=== PATIENT | female | born 1955 | race Caucasian/White ===

== ENCOUNTER → 2016-05-09 | Outpatient (CLI) | payer BC ==
--- NOTE | 2016-05-10 10:05 | MM ---
Reason for exam: screening (asymptomatic). Last mammogram was performed 1 year ago. History: Patient is postmenopausal. Family history of breast cancer in mother at age 57. Physical Findings: A clinical breast exam by your physician is recommended on an annual basis and results should be correlated with mammographic findings. MG 3D Screening Mammo W/Cad Bilateral CC and MLO view(s) were taken. Prior study comparison: May 01, 2015, bilateral MG 3d screening mammo w/cad. March 28, 2014, bilateral MG screening mammo w CAD. February 27, 2013, bilateral digital screening mammo w/CAD. There are scattered fibroglandular densities. No significant changes when compared with prior studies. ASSESSMENT: Negative, BI-RAD 1 RECOMMENDATION: Routine screening mammogram of both breasts in 1 year.
== END | disposition home or self-care (01) ==
LOC: RADMAMWWP 09:02
PROVIDERS: ATTEND Family Medicine
DX: Z12.31 Encounter for screening mammogram for malignant neoplasm of breast (principal)
CPT/HCPCS: 77063; G0202

== ENCOUNTER → 2016-05-23 | Outpatient (CLI) | payer OTHER ==
--- NOTE | 2016-05-23 14:38 | XR ---
Left foot HISTORY: Trauma and pain 3 views of the left foot Comparison the left ankle same date Bone mineralization is mildly reduced. Joint spaces and alignment are maintained. Soft tissues are wi thin normal limits. Calcifications are present at the insertion of the Achilles tendon. There is a pl rafaela calcaneal spur. IMPRESSION: No acute fracture or dislocation is evident
--- NOTE | 2016-05-23 14:40 | XR ---
Left ankle HISTORY: Trauma and pain 3 views of the left ankle correlated to left foot same date There is soft tissue swelling present. Small ossific density is present at the level of the medial ma lleolus which may represent a small chip fracture, correlate for point tenderness. Small ossific dens ities at the medial aspect of the talus are present some of which are well-corticated, difficult to e xclude small chip fractures. No dislocation. Ossific densities present at the insertion of the Achill es tendon. There is a small plantar calcaneal spur, bone mineralization is reduced. IMPRESSION: Difficult to exclude small chip fractures.
== END | disposition home or self-care (01) ==
LOC: RADXRMAIN 14:12
PROVIDERS: ATTEND Emergency Medicine
DX: S90.02XA Contusion of left ankle, initial encounter (principal); S90.32XA Contusion of left foot, initial encounter; W20.8XXA Other cause of strike by thrown, projected or falling object, initial encounter

== ENCOUNTER → 2016-07-01 | Outpatient (CLI) | payer OTHER ==
--- NOTE | 2016-07-01 16:15 | XR ---
EXAMINATION TYPE: XR foot complete LT DATE OF EXAM: 07/01/2016 4:08 PM COMPARISON: NONE HISTORY: Contusion left foot, subsequent encounter TECHNIQUE: 3 view left foot FINDINGS: No acute fractures are evident. Joint spaces are preserved. Achilles tendon and plantar yvon caneal heel spurs are present. There is some soft tissue swelling over the dorsum of the foot. IMPRESSION: 1. Superficial soft tissue swelling dorsum of foot. 2. No acute fractures. 3. Calcaneal heel spurs.
== END | disposition home or self-care (01) ==
LOC: RADXRMAIN 15:54
PROVIDERS: ATTEND Emergency Medicine
DX: M77.32 Calcaneal spur, left foot (principal); S90.32XD Contusion of left foot, subsequent encounter; X58.XXXD Exposure to other specified factors, subsequent encounter

== ENCOUNTER → 2016-07-07 | Outpatient (CLI) | payer BC | LOC: LABWHC1 07:35 | PROVIDERS: ATTEND Internal Medicine Endocrinology, Diabetes & Metabolism | DX: C73 Malignant neoplasm of thyroid gland (principal); E89.0 Postprocedural hypothyroidism; E55.9 Vitamin D deficiency, unspecified; M89.9 Disorder of bone, unspecified; E78.2 Mixed hyperlipidemia | CPT/HCPCS: 36415; 84439; 84443; 84450; 84460 ==

== ENCOUNTER → 2016-11-17 | Outpatient (CLI) | payer BC ==
--- NOTE | 2016-11-27 15:21 | HP ---
HISTORY AND PHYSICAL DATE OF SURGERY: Surgery is scheduled for 11/28/2016 Debora Aparicio is a 61-year-old patient seen with progressive right knee pain. After treatment options were discussed with her she elected to proceed with right total knee arthroplasty. Consent was obtained. Medical clearance was provided by Dr. Iker Gonzalez. PAST MEDICAL HISTORY: Gastroesophageal reflux disease. Hypothyroidism, hypertension. PAST SURGICAL HISTORY: Cholecystectomy, hysterectomy, knee arthroscopy, thyroidectomy. DAILY MEDICATIONS: 1. Prilosec. 2. Ibuprofen. 3. Synthroid. 4. Tribenzor. ALLERGIES: AMOXICILLIN, SEPTRA, MONISTAT. SOCIAL HISTORY: Patient denies tobacco use. PHYSICAL EVALUATION: Right knee range of motion is negative for to 95 degrees. There is a mild effusion present tenderness on medial joint line. Positive medial Katiana's. There is crepitus along the medial and patellofemoral compartments with range of motion. Pain with patellofemoral compression. Ligaments stable. Hip rotation without pain. Distal neurovascular exam intact. RADIOGRAPHS: Radiographs of the right knee revealed severe medial compartment and patellofemoral compartment osteoarthritis. IMPRESSION: Symptomatic right knee osteoarthritis. PLAN: Right total knee arthroplasty. MMODL / IJN: [id number] /
== END | disposition home or self-care (01) ==
LOC: LABPAT 16:31
PROVIDERS: ATTEND Orthopaedic Surgery
DX: Z01.812 Encounter for preprocedural laboratory examination (principal)
CPT/HCPCS: 87070

== ENCOUNTER 2016-11-28 06:03 | Inpatient (IN) | payer BC ==
[2016-11-21 17:34] VITALS: BMI 35.5
[~2016-11-28 06:03] MED LIST: DEXAMETHASONE SOD PHOSPHATE 10 MG/ML 1 ML VIAL IV ONE; HYDROmorphone 1 MG/ML 1 ML SYRINGE IVP PRN; LACTATED RINGERS 1,000 ML IV SCH; MIDAZOLAM 2 MG/2 ML VIAL IV PRN; ONDANSETRON 4 MG/2 ML VIAL IVP ONE
[2016-11-28] MEDS ORDERED: LIDOCAINE 1% 20 ML VIAL (10MG/ML) FOR IV START INTRADERMA ONE (06:35)
[2016-11-28] MEDS ORDERED: fentaNYL (PF) 50 MCG/ML 2 ML AMP IVP ONE ×2 (07:07→07:28)
[2016-11-28] MEDS ORDERED: ROPIVACAINE 246.25 MG, EPINEPHrine 0.5 MG, KETOROLAC 30 MG, cloNIDine HCL/PF 80 MCG, WA... MISCELLANE ONE ×5 (07:25)
[2016-11-28] MEDS ORDERED: MIDAZOLAM 2 MG/2 ML VIAL IVP ONE (07:28)
[2016-11-28] MEDS ORDERED: SODIUM CHLORIDE 0.9% 100 ML BAG ONE (07:34)
[2016-11-28] MEDS ORDERED: MIDAZOLAM 2 MG/2 ML VIAL ONE (07:34)
[2016-11-28] MEDS ORDERED: TRANEXAMIC ACID 1,000 MG/10 ML VIAL ONE (07:34)
[2016-11-28] MEDS ORDERED: TRANEXAMIC ACID 1,000 MG in SODIUM CHLORIDE 0.9% 100 ML IVPB ONE ×2 (07:40→07:41)
[2016-11-28] MEDS ORDERED: SODIUM CHLORIDE 0.9% 100 ML with CLINDAMYCIN 600 MG IV ONE ×2 (07:45)
[2016-11-28] MEDS ORDERED: LACTATED RINGERS 1,000 ML IV ONE (08:07)
[2016-11-28] MEDS ORDERED: ROPIVACAINE 1,100 MG, SODIUM CHLORIDE 0.9% 330 ML MISCELLANE PRN ×2 (08:10)
--- NOTE | 2016-11-28 08:12 | P.ONQ ---
Anesthesiology Proc Note - PNB - Peripheral Nerve Block Performed Right Adductor Canal Infusion Time Out Performed: Yes Indication: Acute Post-Operative Pain, Analgesia Specifically requested for management of pain by DrCameron: Henri Martínez Sedation Type: Sedate with meaningful contact maintained Preparation: Sterile Prep Position: Supine Catheter Depth at Skin (cm): 7 Catheter: Indwelling Needle Types: Other (see comment) (pajunk) Needle Size: 100mm (4") Needle Gauge: 21 Technique: Ultrasound Injectate: 0.5% Ropivacaine (see comment for volume) (20cc) Blood Aspirated: No Pain Paresthesia on Injection Noted: No Resistance on Injection: Normal Events: Uneventful and Well Tolerated
[2016-11-28] MEDS ORDERED: CLINDAMYCIN 1,800 MG in SODIUM CHLORIDE 0.9% IRRIGATIO 3,000 ML IRRIGATION ONE (08:21)
[2016-11-28] MEDS ORDERED: ONDANSETRON 4 MG/2 ML VIAL IVP PRN (09:51)
[2016-11-28] MEDS ORDERED: HYDROcodone/APAP 7.5-325MG 1 EACH TAB PO PRN (09:51)
[2016-11-28] MEDS ORDERED: HYDROmorphone 1 MG/ML 1 ML SYRINGE IVP PRN ×3 (09:51)
[2016-11-28] MEDS ORDERED: hydrOXYzine PAMOATE 25 MG CAP PO PRN (09:51)
[2016-11-28] MEDS ORDERED: NALOXONE 0.4 MG/ML 1 ML VIAL IV PRN (09:51)
--- NOTE | 2016-11-28 09:51 | P.OP ---
Date of Procedure: 11/28/16 Preoperative Diagnosis: Right knee osteoarthritis Postoperative Diagnosis: Right knee osteoarthritis Procedure(s) Performed: Right total knee arthroplasty Implants: 1. Deirdre persona size 7 narrow cemented cruciate retaining femur 2. Deirdre persona size E cemented tibia 3. Deirdre persona 14 mm medial congruent polyethylene tibial insert 4. Deirdre persona 32 mm all polyethylene cemented patella Anesthesia: regional (Adductor canal catheter), local, spinal Surgeon: Henri Martínez Private Equ[employer] Analyst #1: Parrish Russell Estimated Blood Loss (ml): 200 Pathology: other (Bone) Condition: stable Disposition: PACU Indications for Procedure: 61-year-old patient seen with progressive right knee pain. After treatment options were discussed, she elected to proceed with total knee arthroplasty. Operative Findings: See description of procedure Description of Procedure: Patient was taken to the operative suite after having an adductor canal catheter placed by the department anesthesia. Patient underwent a spinal anesthetic by the department of anesthesia. Patient was given preoperative IV intake antibiotics and TXA. A well-padded tourniquet was placed about the right lower extremity. The lower extremity was then prepped and draped in the normal sterile orthopedic fashion. A standard anterior incision was made sharply through skin. Dissection was taken down through the subcutaneous soft tissues down to the extensor mechanism. A medial arthrotomy was performed, patella was everted and knee was flexed. There was advanced osteoarthritis noted. A proximal tibial cutting guide was positioned. Proximal tibial cut was made. A distal intramedullary femoral cutting guide was positioned, distal femoral cut made. We placed the appropriate sizing guide and selected the appropriate size. A distal 4-in-1 femoral cutting block was positioned, distal femoral cuts were made. We now placed a trial femoral component into position, along with an appropriate size tibial tray and insert. We now took the knee through range of motion and had full extension good flexion and good overall soft tissue balance noted. The patella was everted and a flush cut made with patellar quad tendon. We templated the patella, appropriate drill holes were made. An appropriate trial patella was positioned, knee was taken through full range of motion with the patella tracking very nicely. The trial patella was removed. Drill holes were made through the femoral component. All trial components were removed after marking off the appropriate rotation of the tibia. Retractors were now positioned along the proximal tibia. An appropriate keel punch was made with the appropriate size tibial guide. The tourniquet was insufflated to 350. At this point appropriate size implants were chosen and opened. The joint was irrigated copiously with pulse lavage mechanical irrigation. I then infiltrated the deep soft tissues with local analgesic. We mixed antibiotic methylmethacrylate. Once the methyl methacrylate was ready, the tibial component was cemented into place removing any excess methylmethacrylate. The femoral component was cemented into place removing the removing any excess methylmethacrylate. We then inserted the appropriate size polyethylene tibial insert. We made sure that it was locked into position. We took the knee into full extension, and then back in a flexion making sure we had removed any excess methylmethacrylate. The patellar component was then cemented down and secured with clamp. Excess methylmethacrylate removed. We kept the knee in full extension, patellar clamp in position until methylmethacrylate had hardened. Once it had hardened the patellar clamp was removed. The knee was taken through full range of motion. The patella tracked nicely. There was good soft tissue balancing. The tourniquet was now released. Additional hemostasis was achieved via electrocautery. A second gram of TXA was given. The extensor mechanism was repaired with Vicryl. We checked the repair with range of motion and it was stable. The subcutaneous soft tissues were repaired with Vicryl in layers. The skin was approximated with pernio/Dermabond. Sterile dressings were applied followed by loose web roll and Vlad bandage. The patient was transferred to a bed, and taken to recovery in stable and satisfactory condition. Rick VAZQUEZ assisted with the procedure.
--- NOTE | 2016-11-28 10:43 | XR ---
EXAMINATION TYPE: XR knee limited RT DATE OF EXAM: 11/28/2016 COMPARISON: NONE HISTORY: 61-year-old female evaluation for postoperative abnormality and alignment TECHNIQUE: 2 views FINDINGS: Images show placement of right total knee arthroplasty. The distal femoral and proximal tibial compon ents of the prosthesis appear well seated without periprosthetic fracture. There is anterior soft tis charis swelling as well as soft tissue gas and intra-articular air in joint effusion compatible with rec ent operation. Alignment is grossly anatomic. IMPRESSION: Uncomplicated postoperative appearance right total knee arthroplasty.
[2016-11-28] MEDS ORDERED: LORATADINE 10 MG TAB PO PRN (11:57)
--- NOTE | 2016-11-28 12:01 | P.CONS ---
History of Present Illness - Reason for Consult Consult date: 11/28/16 medical management Requesting physician: Henri Martínez - Chief Complaint post right total knee arthroplasty. - History of Present Illness This is a 61-year-old female one of Dr. Gonzalez with a previous medical history significant for hypertension and hypertensive cardiovascular disease, hypothyroidism, history of ALLERGIC rhinitis, osteoarthritis, patient underwent right total knee arthroplasty that was done successfully by Dr. Martínez, and we were asked to see the patient for medical management. Patient is laying down in bed in no apparent distress, she denies any chest pain , shortness breath, she has no abdominal pain, nausea, vomiting. Review of Systems Constitutional: Denies anorexia, Denies lethargy, Denies malaise, Denies weakness, Denies weight gain Eyes: denies blurred vision, denies bulging eye, denies decreased vision, denies diplopia, denies discharge Ears: bilateral: decreased hearing Ears, nose, mouth and throat: Denies dysphagia, Denies neck lump, Denies swelling in throat, Denies sore throat, Denies vertigo Cardiovascular: Reports high blood pressure, Denies chest pain, Denies decreased exercise tolerance, Denies dyspnea on exertion, Denies paroxysmal nocturnal dyspnea, Denies phlebitis, Denies rapid heart beat Respiratory: Denies congestion, Denies cough, Denies cough with sputum, Denies home oxygen, Denies sleep apnea, Denies snoring, Denies wheezing Gastrointestinal: Denies abdominal pain, Denies bloating, Denies BRBPR, Denies excessive gas, Denies heartburn, Denies nausea, Denies vomiting Genitourinary: Denies dysuria, Denies hematuria Menstruation: Reports postmenopausal Musculoskeletal: Denies myalgias Musculoskeletal: right: knee pain, knee stiffness, knee swelling, absent: ankle pain, ankle stiffness, ankle swelling, elbow pain, elbow stiffness, elbow swelling, foot pain, foot stiffness, foot swelling, hand pain, hand stiffness, hand swelling, hip pain, hip stiffness, hip swelling, shoulder pain, shoulder stiffness, shoulder swelling, wrist pain, wrist stiffness, wrist swelling Integumentary: Denies pruritus, Denies rash Neurological: Denies numbness, Denies weakness Psychiatric: Denies anxiety, Denies depression Endocrine: Denies fatigue, Denies weight change Past Medical History Past Medical History: Hypertension, Osteoarthritis (OA), Sleep Apnea/CPAP/BIPAP , Thyroid Disorder Additional Past Medical History / Comment(s): supposed to use CPAP History of Any Multi-Drug Resistant Organisms: None Reported Past Surgical History: Cholecystectomy, Hysterectomy, Orthopedic Surgery Additional Past Surgical History / Comment(s): thyroidectomy, arthroscopy knee Past Anesthesia/Blood Transfusion Reactions: Postoperative Nausea & Vomiting ( PONV) Smoking Status: Never smoker - Past Family History Mother Family Medical History: Cancer (mother at age of 52 from breast cancer.) Sister(s) Family Medical History: Cancer, Coronary Artery Disease (CAD) (patient had 4 sisters one of them from [place] and another sister was diagnosed with cancer.) Father Family Medical History: Pulmonary Embolus (father at age of 65 from pulmonary embolism.) Son(s) Family Medical History: No Reported History (patient has 2 sons no major medical problems.) Daughter(s) Family Medical History: No Reported History (patient has one daughter no major medical problems.) Medications and Allergies Home Medications Medication Instructions Recorded Confirmed Type Acetaminophen Tab [Tylenol Tab] 500 mg PO Q6H PRN 11/21/16 11/28/16 History Calcium Citrate 250 mg PO DAILY 11/21/16 11/28/16 History Cranberry Fruit Extract [Cranberry] 200 mg PO DAILY 11/21/16 11/28/16 History Ergocalciferol (Vitamin D2) 50,000 unit PO SA 11/21/16 11/28/16 History [Vitamin D2] Garlic 1 tab PO DAILY 11/21/16 11/28/16 History Glucosam/Devaughn-Msm1/C/Nitesh/Bosw 1 tab PO DAILY 11/21/16 11/28/16 History [Glucosamine-Chondroitin Tablet] Ibuprofen [Motrin] 800 mg PO Q6H PRN 11/21/16 11/28/16 History Levothyroxine Sodium [Synthroid] 125 mcg PO DAILY 11/21/16 11/28/16 History Loratadine [Claritin] 10 mg PO DAILY PRN 11/21/16 11/28/16 History Magnesium 200 mg PO DAILY 11/21/16 11/28/16 History Multivit with Calcium,Iron,Min 1 tab PO DAILY 11/21/16 11/28/16 History [Women's Multivitamin] Olmesartan/Amlodipin/Hcthiazid 1 tab PO DAILY 11/21/16 11/28/16 History [Tribenzor 20-5-12.5 mg Tablet] [place]-3 Fatty Acids [[place]-3] 1,000 mg PO DAILY 11/21/16 11/28/16 History Vitamin B Complex 1 cap PO DAILY 11/21/16 11/28/16 History Allergies Allergy/AdvReac Type Severity Reaction Status Date / Time amoxicillin Allergy Rash/Hives Verified 11/28/16 10:11 cefuroxime [From Ceftin] Allergy Unknown Verified 11/28/16 10:11 ciprofloxacin [From Cipro] Allergy Unknown Verified 11/28/16 10:11 sulfamethoxazole Allergy Unknown Verified 11/28/16 10:11 [From Septra] tioconazole Allergy Unknown Verified 11/28/16 10:11 [From Monistat 1 (tioconazole)] trimethoprim [From Septra] Allergy Unknown Verified 11/28/16 10:11 Physical Exam Vitals: Vital Signs Temp Pulse Pulse Resp BP Pulse Ox 11/28/16 10:39 60 16 95/50 97 11/28/16 10:24 59 L 16 90/50 98 11/28/16 10:09 63 16 97/46 96 11/28/16 09:54 97.2 F L 71 18 101/53 96 11/28/16 06:20 97.5 F L 81 16 134/64 95 Intake and Output 11/27/16 11/28/16 11/28/16 22:59 06:59 14:59 Intake Total 300 1305 Output Total 450 Balance 300 855 Intake: IV 300 1305 Output: Urine 250 Estimated Blood Loss 200 - Constitutional General appearance: no acute distress - EENT Eyes: anicteric sclerae, EOMI, PERRLA, no ptosis, scleral icterus, no normal appearance ENT: hearing grossly normal, NA/AT, normal oropharynx, no thrush Ears: bilateral: normal - Neck Neck: no lymphadenopathy, normal ROM, no rigidity, no stridor, no thyromegaly Carotids: bilateral: upstroke normal Thyroid: bilateral: normal size - Respiratory Respiratory: bilateral: diminished, negative: dullness, rales, rhonchi, wheezing , prolonged expiration, prolonged inspiration - Cardiovascular Rhythm: regular Heart sounds: normal: S1, S2 Abnormal Heart Sounds: systolic murmur, no S3 Gallop, no S4 Gallop, no click - Gastrointestinal General gastrointestinal: normal bowel sounds, soft, no splenomegaly, no tenderness, no umbilical hernia, no ventral hernia - Integumentary Integumentary: normal, normal turgor - Neurologic Neurologic: CNII-XII intact - Musculoskeletal Musculoskeletal: strength equal bilaterally - Psychiatric Psychiatric: A&O x's 3, appropriate affect, intact judgment & insight Assessment and Plan Plan: Assessment and plan: 1. Post operative day #0 status post right total knee arthroplasty. Continue incentive Spiriva her to reduce the incidence of atelectasis and hospital- acquired pneumonia, continue with DVT prophylaxis as per orthopedic recommend ablation, continue with physical therapy, current pain management as outlined by orthopedic surgery, physical therapy evaluation tomorrow morning. 2. Hypertension and hypertensive cardiovascular disease. Continue patient on Tribenzor 20/5/12.5 mg orally once every day. 3. Hypothyroidism. Continue patient on Synthroid 125 g orally once every day. 4. Vitamin D deficiency. Continue patient on Drisdol 50,000 units once every week. 5. ALLERGIC rhinitis. Continue loratadine 10 mg orally once every day. 6. Osteoarthritis. Continue current pain management. 7. DVT prophylaxis. Continue Lovenox 30 mg subcutaneously every 12 hours. 8. GI prophylaxis. Continue current management. 9. Thank you Dr. Martínez for allowing us to participate in the care of your patient, we will be happy to follow the patient along with you.
[2016-11-28] MEDS: LACTATED RINGERS 1,000 ML IV SCH ×2 (12:23→19:36)
--- NOTE | 2016-11-28 13:14 | P.DS ---
Providers Date of admission: 11/28/16 06:03 Expected date of discharge: 11/29/16 Attending physician: Henri Martínez Consults: 11/28/16 09:51 Consult Physician Routine Consulting Provider: Sai Coelho Reason/Comments: Medical management Do you want consulting provider notified?: Yes Primary care physician: Iker [facility] Course: Date of admission: 11/28/2016 Date of discharge: 11/29/2016 Admission diagnosis: Status post right total knee arthroplasty Discharge diagnosis: Same Attending physician: Dr. Martínez Surgical procedures: Right total knee arthroplasty Brief history: Patient is a 61-year-old female with a history of progressive primary right knee osteoarthritis. At this point patient has failed conservative treatment measures and has opted to proceed with a elective right total knee arthroplasty. Hospital course: Details of patient's surgery can be found in operative report. Patient tolerated the procedure well and was subsequently transported to orthopedic floor. Patient's orthopeidc and medical care was provided daily. Patient had daily laboratory tests performed for evaluation of overall blood counts. Patient had daily physical therapy to include strengthening range of motion as well as education with walker ambulation. Patient had daily CPM usage as part of their physical therapy program. Patient was treated with Lovenox for their postoperative DVT prophylaxis during their inpatient stay. Patient was noted to have a relatively uneventful postoperative course. Patient reported satisfactory pain control with oral pain medications by postoperative day 0. Patient showed satisfactory progress with physical therapy. Patient moved steadily through the program and had no difficulty meeting the goals by postoperative day 2. Given patient's otherwise satisfactory course and having met physical therapy goals, plan is to discharge patient home on postoperative day 2. Discharge condition/disposition: Patient will be discharged home in stable condition. Discharge medications: Instructions are given on resumption of patient's normal daily medications per primary care recommendation, in addition patient will be prescribed [place] 7.5 mg/325 mg, tramadol 50 mg, Senokot-S 100 mg, Pepcid 20 mg, aspirin. 325 mg. Discharge instructions: 1. Wound care and infection precautions, [keep incision dry and covered while showering], no lotions, creams, moisturizers. No soaking, tubs, pools, hottubs. Do not scrub over the incision. 2. Weight-bear [as tolerated] with walker / cane until follow-up. 3. Ice and elevate when necessary. Do not exceed 20 minutes per hour with ice pack. 4. Utilize compression sleeve until seen at first follow up appointment. 5. Visiting nursing care. 6. Home physical therapy [including home CPM]. 7. Pain meds and anticoagulants per prescription. 8. Pain medication has potential to cause constipation. Increase oral fluid and fiber intake. Contact primary care provider if you have not had a bowel movement within 48 hours after discharge 9. No anti-inflammatory medication until discussed at first post operative visit, this including Motrin, Aleve, Mobic, Diclofenac. 10. Follow up in office at 2 weeks postop with Rick Russell PA-C 11. Follow up with your primary care doctor 7-10 days after discharge. 12. Contact [facility] with any questions, . Procedures: Right total knee arthroplasty Patient Condition at Discharge: Good Plan - Discharge Summary New Discharge Prescriptions: New Famotidine [Pepcid] 20 mg PO DAILY #30 tab HYDROcodone/APAP 7.5-325MG [[place] 7.5-325] 1 each PO Q6H PRN #120 tab PRN Reason: Pain Scale 1 To 5 Sennosides-Docusate Sodium [Senokot-S] 2 each PO HS #60 tab Aspirin EC [Ecotrin] 325 mg PO BID #60 tablet. traMADol HCl [Ultram] 50 mg PO Q6H PRN #40 tab PRN Reason: Pain Continue Loratadine [Claritin] 10 mg PO DAILY PRN PRN Reason: allergies Acetaminophen Tab [Tylenol] 500 mg PO Q6H PRN PRN Reason: Pain Levothyroxine Sodium [Synthroid] 125 mcg PO DAILY Vitamin B Complex 1 cap PO DAILY Washington-3 Fatty Acids [Washington-3] 1,000 mg PO DAILY Olmesartan/Amlodipin/Hcthiazid [Tribenzor 20-5-12.5 mg Tablet] 1 tab PO DAILY Multivit with Calcium,Iron,Min [Women's Multivitamin] 1 tab PO DAILY Magnesium 200 mg PO DAILY Glucosam/Devaughn-Msm1/C/Nitesh/Bosw [Glucosamine-Chondroitin Tablet] 1 tab PO DAILY Garlic 1 tab PO DAILY Ergocalciferol (Vitamin D2) [Vitamin D2] 50,000 unit PO SA Cranberry Fruit Extract [Cranberry] 200 mg PO DAILY Calcium Citrate 250 mg PO DAILY Discontinued Ibuprofen [Motrin] 800 mg PO Q6H PRN PRN Reason: Pain Discharge Medication List Acetaminophen Tab [Tylenol] 500 mg PO Q6H PRN 11/21/16 [History] Calcium Citrate 250 mg PO DAILY 11/21/16 [History] Cranberry Fruit Extract [Cranberry] 200 mg PO DAILY 11/21/16 [History] Ergocalciferol (Vitamin D2) [Vitamin D2] 50,000 unit PO SA 11/21/16 [History] Garlic 1 tab PO DAILY 11/21/16 [History] Glucosam/Devaughn-Msm1/C/Nitesh/Bosw [Glucosamine-Chondroitin Tablet] 1 tab PO DAILY 11/21/16 [History] Levothyroxine Sodium [Synthroid] 125 mcg PO DAILY 11/21/16 [History] Loratadine [Claritin] 10 mg PO DAILY PRN 11/21/16 [History] Magnesium 200 mg PO DAILY 11/21/16 [History] Multivit with Calcium,Iron,Min [Women's Multivitamin] 1 tab PO DAILY 11/21/16 [ History] Olmesartan/Amlodipin/Hcthiazid [Tribenzor 20-5-12.5 mg Tablet] 1 tab PO DAILY [History] Washington-3 Fatty Acids [Washington-3] 1,000 mg PO DAILY 11/21/16 [History] Vitamin B Complex 1 cap PO DAILY 11/21/16 [History] Aspirin EC [Ecotrin] 325 mg PO BID #60 tablet. 11/29/16 [Rx] Famotidine [Pepcid] 20 mg PO DAILY #30 tab 11/29/16 [Rx] HYDROcodone/APAP 7.5-325MG [[place] 7.5-325] 1 each PO Q6H PRN #120 tab 11/29/16 [ Rx] Sennosides-Docusate Sodium [Senokot-S] 2 each PO HS #60 tab 11/29/16 [Rx] traMADol HCl [Ultram] 50 mg PO Q6H PRN #40 tab 11/29/16 [Rx] Follow up Appointment(s)/Referral(s): Parrish Russell PAC [PHYSICIAN INSERT OPERATOR] - 2 Weeks [facility], [REFERRING] - Activity/Diet/Wound Care/Special Instructions: Orthopedic Discharge Instructions: 1. Wound care and infection precautions, keep incision dry and covered while showering, no lotions, creams, moisturizers. No soaking, pools, hot tubs. Do not scrub over incision. 2. Weight-bear as tolerated with walker / cane until follow-up. 3. Ice and elevate when necessary. Do not exceed 20 minutes per hour with ice pack. 4. Utilize compression sleeve until seen at first follow up appointment. 5. Visiting nursing care. 6. Home physical therapy including home CPM. 7. Pain meds and anticoagulants per prescription. 8. Pain medication has potential to cause constipation. Increase oral fluid and fiber intake. Contact primary care provider if you have not had a bowel movement within 48 hours after discharge. 9. No anti-inflammatory medication until discussed at first post operative visit, this including Motrin, Aleve, Mobic, Diclofenac. 10. Follow up in office at 2 weeks postop with Rick Russell PA-C 11. Follow up with your primary care doctor 7-10 days after discharge. 12. Contact [facility] with any questions, . Walker through [facility] [phone]. Discharge Disposition: HOME WITH HOME HEALTH SERVICES
[2016-11-28] MEDS: CLINDAMYCIN 900 MG in DEXTROSE 5% IN WATER 50 ML IVPB SCH ×4 (13:45→18:07)
[2016-11-28] MEDS: traMADol 50 MG TAB PO SCH ×3 (13:46→21:37)
[2016-11-28] MEDS ORDERED: SENNOSIDES-DOCUSATE SODIUM 1 EACH TAB PO SCH (21:00)
[2016-11-28] MEDS: ENOXAPARIN 30 MG/0.3 ML SYRINGE SQ SCH (21:37)
[2016-11-28] MEDS: HYDROcodone/APAP 7.5-325MG 1 EACH TAB PO PRN (23:26)
[2016-11-29] MEDS: LACTATED RINGERS 1,000 ML IV SCH (00:16)
[2016-11-29] MEDS: HYDROcodone/APAP 7.5-325MG 1 EACH TAB PO PRN ×2 (04:37→12:15)
[2016-11-29] MEDS ORDERED: LEVOTHYROXINE 125 MCG TAB PO SCH (06:30)
[2016-11-29 07:44] LABS: Basophils % (A) 0 %; CH 31.9; CHCM 34.9; Eosinophils # (A) 0.1 k/uL (0-0.7); Eosinophils % (A) 0 %; HCT 37.1 % (34.0-46.0); HDW 2.56; HGB 12.8 gm/dL (11.4-16.0); Luc # (Auto) 0.19; Luc % (Auto) 1; Lymphocytes # (A) 2.5 k/uL (1.0-4.8); Lymphocytes % (A) 17 %; MCH 31.7 pg (25.0-35.0); MCHC 34.5 g/dL (31.0-37.0); MCV 91.9 fL (80.0-100.0); Mean Platelet Volume 7.6; Monocytes # (A) 1.2 k/uL (0-1.0); Monocytes % (A) 8 %; Neutrophils # (A) 10.7 k/uL (1.3-7.7); Neutrophils % (A) 73 %; RBC 4.04 m/uL (3.80-5.40); RDW 13.4 % (11.5-15.5); WBC 14.6 k/uL (3.8-10.6); WBC (Perox) 14.44
[2016-11-29] MEDS: ENOXAPARIN 30 MG/0.3 ML SYRINGE SQ SCH (08:37)
[2016-11-29] MEDS: traMADol 50 MG TAB PO SCH ×2 (08:38→12:43)
[2016-11-29] MEDS ORDERED: B COMPLEX-VIT C-VIT E-ZINC 1 EACH TAB PO SCH (09:00)
[2016-11-29] MEDS ORDERED: MAGNESIUM OXIDE 400 MG TAB PO SCH (09:00)
[2016-11-29] MEDS ORDERED: CALCIUM CITRATE 250 MG PO SCH (09:00)
[2016-11-29] MEDS ORDERED: MELOXICAM 7.5 MG TAB PO SCH (09:00)
[2016-11-29] MEDS ORDERED: HYDROCHLOROTHIAZIDE 12.5 MG CAP PO SCH (09:00)
[2016-11-29] MEDS ORDERED: LOSARTAN 50 MG TAB PO SCH (09:00)
[2016-11-29] MEDS ORDERED: amLODIPine 5 MG TAB PO SCH (09:00)
[2016-11-29] MEDS ORDERED: FAMOTIDINE 20 MG TAB PO SCH (09:00)
--- NOTE | 2016-11-29 10:47 | P.PN ---
Progress Note - Text 0737 anesthesia POD 1. Patient is status post right TKR under spinal anesthesia with a right adductor canal catheter placed for postoperative pain relief. With ropivacaine 0.2% running at 8 mL per hour the patient's VAS is (2 , 4). Catheter site is clean dry and intact.
[2016-11-29] MEDS ORDERED: MULTIVITAMINS, THERA 1 EACH TAB PO SCH (12:00)
--- NOTE | 2016-11-29 12:40 | P.PN ---
Subjective Principal diagnosis: Status post right total knee arthroplasty Patient is seen today resting in her hospital chair, she appears comfortable. She has had a little bit increase in pain in the knee since ambulating with therapy. He did very well ambulating with therapy. She denies any chest pain, lightheadedness, headaches, shortness of breath, nausea or vomiting. Objective - Vital Signs Vital signs: Vital Signs Temp 97.9 F 11/29/16 00:52 Pulse 59 L 11/29/16 01:43 Resp 16 11/29/16 00:52 BP 101/55 11/29/16 01:43 Pulse Ox 93 L 11/29/16 00:52 Intake & Output 11/28/16 11/29/16 11/29/16 18:59 06:59 18:59 Intake Total 1805 400 Output Total 550 1600 350 Balance 1255 -1200 -350 Weight 82.554 kg Intake: IV 1605 400 Lactated Ringers 1,000 ml 400 @ 100 mls/hr IV .Q10H LUIS Rx#:[id number] Oral 200 Output: Urine 350 1600 350 Uretheral ([place]) 1200 Estimated Blood Loss 200 Other: Voiding Method Indwelling Catheter Indwelling Catheter # Voids 2 - Exam Right lower extremity: Incision is clean, dry, and intact. Minimal soft tissue swelling present around the knee. Calf is supple, no tenderness with palpation. Plantar flexion , dorsiflexion, EHL, FHL are intact. Sensory exam to light touch throughout the extremity is intact. Dorsal pedis pulses 2+. - Labs CBC & Chem 7: 11/29/16 07:22 Labs: Abnormal Lab Results - Last 24 Hours (Table) 11/29/16 Range/Units 07:22 WBC 14.6 H (3.8-10.6) k/uL Neutrophils # 10.7 H (1.3-7.7) k/uL Monocytes # 1.2 H (0-1.0) k/uL Assessment and Plan Plan: Assessment: 1. Postop day #1 status post right total knee arthroplasty Plan: 1. Pain control, we'll discharge home on oral medication 2. Home therapy and nursing discharge 3. Ice and elevate/daily dressing changes, wound care was discussed with patient 4. Encourage incentive spirometer 5. GI and DVT prophylaxis, we'll discharge home on aspirin 325 mg twice a day 6. Medical recommendations 7. Discharge planning: Patient will be discharged home today Time with Patient: Less than 30
[2016-11-29 15:06] VITALS: BP 102/49; PULSE 64; RESP 16; TEMP 97.2
--- NOTE | 2016-11-29 16:10 | P.PN ---
Subjective This is a 61-year-old female one of Dr. Gonzalez with a previous medical history significant for hypertension and hypertensive cardiovascular disease, hypothyroidism, history of ALLERGIC rhinitis, osteoarthritis, patient underwent right total knee arthroplasty that was done successfully by Dr. Martínez, and we were asked to see the patient for medical management. Patient is laying down in bed in no apparent distress, she denies any chest pain , shortness breath, she has no abdominal pain, nausea, vomiting. 11/29: Patient was evaluated today. She is noted to be lying in the bed, she denies any chest pain or shortness of breath. Reports pain is well controlled plan is for discharge home, she'll be on aspirin 325mg twice a day the next 4-6 weeks. Continue with physical therapy, watch for post operative complications. Objective - Vital Signs Vital signs: Vital Signs Temp 97.9 F 11/29/16 00:52 Pulse 59 L 11/29/16 01:43 Resp 16 11/29/16 00:52 BP 101/55 11/29/16 01:43 Pulse Ox 93 L 11/29/16 00:52 Intake & Output 11/28/16 11/29/16 11/29/16 18:59 06:59 18:59 Intake Total 1805 400 Output Total 550 1600 350 Balance 1255 -1200 -350 Weight 82.554 kg Intake: IV 1605 400 Lactated Ringers 1,000 ml 400 @ 100 mls/hr IV .Q10H LUIS Rx#:[id number] Oral 200 Output: Urine 350 1600 350 Uretheral ([place]) 1200 Estimated Blood Loss 200 Other: Voiding Method Indwelling Catheter Indwelling Catheter # Voids 2 - Exam - Constitutional General appearance: no acute distress - EENT Eyes: anicteric sclerae, EOMI, PERRLA, no ptosis, scleral icterus, no normal appearance ENT: hearing grossly normal, NA/AT, normal oropharynx, no thrush Ears: bilateral: normal - Neck Neck: no lymphadenopathy, normal ROM, no rigidity, no stridor, no thyromegaly Carotids: bilateral: upstroke normal Thyroid: bilateral: normal size - Respiratory Respiratory: bilateral: diminished, negative: dullness, rales, rhonchi, wheezing , prolonged expiration, prolonged inspiration - Cardiovascular Rhythm: regular Heart sounds: normal: S1, S2 Abnormal Heart Sounds: systolic murmur, no S3 Gallop, no S4 Gallop, no click - Gastrointestinal General gastrointestinal: normal bowel sounds, soft, no splenomegaly, no tenderness, no umbilical hernia, no ventral hernia - Integumentary Integumentary: normal, normal turgor - Neurologic Neurologic: CNII-XII intact - Musculoskeletal Musculoskeletal: strength equal bilaterally - Psychiatric Psychiatric: A&O x's 3, appropriate affect, intact judgment & insight - Labs CBC & Chem 7: 11/29/16 07:22 Labs: Abnormal Lab Results - Last 24 Hours (Table) 11/29/16 Range/Units 07:22 WBC 14.6 H (3.8-10.6) k/uL Neutrophils # 10.7 H (1.3-7.7) k/uL Monocytes # 1.2 H (0-1.0) k/uL Assessment and Plan Plan: 1. Post operative day #1 status post right total knee arthroplasty. Continue incentive spirometer to reduce the incidence of atelectasis and hospital- acquired pneumonia, continue with DVT prophylaxis as per orthopedic recommend ablation, continue with physical therapy, current pain management as outlined by orthopedic surgery, physical therapy. 2. Hypertension and hypertensive cardiovascular disease. Continue patient on Tribenzor 20/5/12.5 mg orally once every day. 3. Hypothyroidism. Continue patient on Synthroid 125 g orally once every day. 4. Vitamin D deficiency. Continue patient on Drisdol 50,000 units once every week. 5. ALLERGIC rhinitis. Continue loratadine 10 mg orally once every day. 6. Osteoarthritis. Continue current pain management. 7. DVT prophylaxis. Continue Lovenox 30 mg subcutaneously every 12 hours. 8. GI prophylaxis. Continue current management. 9. Thank you Dr. Martínez for allowing us to participate in the care of your patient, we will be happy to follow the patient along with you. The above impression and plan of care have been discussed and directed by signing physician. Aurelia Bhakta nurse practitioner acting as scribe for signing physician.
[2016-12-03] MEDS ORDERED: ERGOCALCIFEROL 50,000 UNIT CAP PO SCH (09:00)
== END 2016-11-29 16:15 | disposition home health service (06) | DRG 470 ==
LOC: 2ORMAIN 06:03 → 3SUR 09:36
PROVIDERS: ADMIT Orthopaedic Surgery; ATTEND Orthopaedic Surgery
PROC: 0SRC0J9 Replacement of Right Knee Joint with Synthetic Substitute, Cemented, Open Approach (ICD-10-PCS; principal; 2016-11-28 07:30)
DX: M17.11 Unilateral primary osteoarthritis, right knee (principal); I11.9 Hypertensive heart disease without heart failure; E03.9 Hypothyroidism, unspecified; J30.9 Allergic rhinitis, unspecified; G47.33 Obstructive sleep apnea (adult) (pediatric); E55.9 Vitamin D deficiency, unspecified; Z80.3 Family history of malignant neoplasm of breast; Z82.49 Family history of ischemic heart disease and other diseases of the circulatory system; Z90.710 Acquired absence of both cervix and uterus; Z90.49 Acquired absence of other specified parts of digestive tract; Z79.899 Other long term (current) drug therapy; Z88.1 Allergy status to other antibiotic agents; Z88.2 Allergy status to sulfonamides; Z88.8 Allergy status to other drugs, medicaments and biological substances; Z79.1 Long term (current) use of non-steroidal anti-inflammatories (NSAID)
CPT/HCPCS: 85025

== ENCOUNTER → 2017-03-30 | Outpatient (CLI) | payer BC ==
--- NOTE | 2017-03-30 19:15 | CT ---
EXAMINATION TYPE: CT brain wo con DATE OF EXAM: 03/30/2017 COMPARISON: 05/25/2010 HISTORY: Faical numbness and chest tightness. CT DLP: 1091 mGycm Automated exposure control for dose reduction was used. FINDINGS: Ventricles have normal size. There is no mass effect nor midline shift. There is no sign of intracran ial hemorrhage. There is mild cerebral cortical atrophy. The calvarium is intact. IMPRESSION: MILD ATROPHY. NO ACUTE INTRACRANIAL ABNORMALITY. NO CHANGE.
--- NOTE | 2017-03-30 19:18 | US ---
EXAMINATION TYPE: US carotid duplex BILAT DATE OF EXAM: 03/30/2017 COMPARISON: NONE CLINICAL HISTORY: R20.2 Facial paraesthesia,E78.5 Hyperlipidemia. Left side numbness/tingling on and off EXAM MEASUREMENTS: RIGHT: Peak Systolic Velocity (PSV) cm/sec ----- Right CCA: 91.7 ----- Right ICA: 78.9 ----- Right ECA: 91.5 ICA/CCA ratio: 0.9 RIGHT: End Diastole cm/sec ----- Right CCA: 24.8 ----- Right ICA: 24.9 ----- Right ECA: 12.4 LEFT: Peak Systolic Velocity (PSV) cm/sec ----- Left CCA: 100.5 ----- Left ICA: 88.9 ----- Left ECA: 88.9 ICA/CCA ratio: 0.9 LEFT: End Diastole cm/sec ----- Left CCA: 17.6 ----- Left ICA: 29.3 ----- Left ECA: 11.1 VERTEBRALS (direction of flow): Right Vertebral: Antegrade Left Vertebral: Antegrade Rhythm: Normal Minimal plaque visualized bilaterally. No elevated velocities, no significant stenosis. IMPRESSION: There is antegrade flow in the vertebral arteries. The images and measurements suggest l ess than 20% stenosis in both internal carotid arteries. Criteria for Assigning % of Stenosis / Diameter reduction (Estimation based on the indirect measurements of the internal carotid artery velocities (ICA PSV). 1. Normal (no stenosis)=ICA PSV < 125 cm/s: ratio < 2.0: ICA EDV<40 cm/s. 2. Less than 50% stenosis=ICA PSV < 125 cm/s: ratio < 2.0: ICA EDV<40 cm/s. 3. 50 to 69% stenosis=ICA PSV of 125 to 230 cm/s: ration 2.0 ? 4.0: ICA EDV 40-100 cm/s. 4. Greater than 70% stenosis to near occlusion= ICA PSV > 230 cm/s: ratio > 4.0: ICA EDV > 100 cm/s. 5. Near occlusion= ICA PSV velocities may be low or undetectable: variable ratio and ICA EDV. 6. Total occlusion=unable to detect flow.
== END | disposition home or self-care (01) ==
LOC: RADCTMAIN 17:44
PROVIDERS: ATTEND Family Medicine
DX: E78.5 Hyperlipidemia, unspecified (principal); G31.9 Degenerative disease of nervous system, unspecified; R07.89 Other chest pain; R20.2 Paresthesia of skin
CPT/HCPCS: 70450; 93880

== ENCOUNTER → 2017-06-23 | Outpatient (CLI) | payer BC ==
[2017-06-23 13:20] LABS: Basophils # (A) 0.1 k/uL (0-0.2); Basophils % (A) 1 %; Eosinophils # (A) 0.1 k/uL (0-0.7); Eosinophils % (A) 2 %; HCT 48.8 % (34.0-46.0); HGB 16.5 gm/dL (11.4-16.0); Lymphocytes # (A) 2.4 k/uL (1.0-4.8); Lymphocytes % (A) 26 %; MCH 29.7 pg (25.0-35.0); MCHC 33.7 g/dL (31.0-37.0); MCV 88.1 fL (80.0-100.0); Mean Platelet Volume 7.3; Monocytes # (A) 0.4 k/uL (0-1.0); Monocytes % (A) 5 %; Neutrophils # (A) 5.9 k/uL (1.3-7.7); Neutrophils % (A) 66 %; Platelet Count 347 k/uL (150-450); RBC 5.54 m/uL (3.80-5.40); RDW 12.3 % (11.5-15.5); WBC 8.9 k/uL (3.8-10.6)
[2017-06-23 13:25] LABS: Partial Thromboplastin Time 23.5 sec (22.0-30.0); Prothrombin Time 10.1 sec (9.0-12.0)
[2017-06-23 13:47] LABS: Potassium 4.2 mmol/L (3.5-5.1)
== END ==
LOC: LABPAT 12:48
PROVIDERS: ATTEND Orthopaedic Surgery
DX: Z01.812 Encounter for preprocedural laboratory examination (principal); M17.12 Unilateral primary osteoarthritis, left knee; Z79.01 Long term (current) use of anticoagulants
CPT/HCPCS: 36415; 80051; 85025; 85610; 85730; 87070

== ENCOUNTER 2017-07-10 07:30 | Inpatient (IN) | payer BC ==
[2017-06-30 15:18] VITALS: BMI 35.5
--- NOTE | 2017-07-09 12:25 | HP ---
HISTORY AND PHYSICAL SURGERY: 07/10/2017 Debora Aparicio is a 61-year-old patient seen with progressive left knee pain. Treatment options were discussed. She elected to proceed with left total knee arthroplasty. Consent was obtained. Medical clearance was provided by Dr. Gonzalez. PAST MEDICAL HISTORY: Hypertension, hypothyroidism, migraine headaches. PAST SURGICAL HISTORY: Cholecystectomy, hysterectomy, right total knee arthroplasty, thyroidectomy. MEDICATIONS: Prilosec, ibuprofen, Synthroid, Tribenzor. ALLERGIES: AMOXICILLIN, SEPTRA, AND MONISTAT. SOCIAL HISTORY: Patient denies tobacco use. PHYSICAL EXAMINATION: Evaluation left knee: Range of motion is -3 to 110 degrees. Tenderness along the medial joint line with positive medial Katiana's. There is crepitus along the medial patellofemoral compartments with range of motion. Some pain with patellofemoral compression. Ligaments stable. Hip rotation without pain. Distal neurovascular exam intact. RADIOGRAPHS: Radiographs of the left knee reveal severe medial, moderate to severe patellofemoral compartment osteoarthritis. IMPRESSION: 1. Left knee osteoarthritis. 2. Hypertension. 3. Hypothyroidism. PLAN: Left total knee arthroplasty. MMODL / IJN: [id number] /
[~2017-07-10 07:30] MED LIST changes: +ACETAMINOPHEN TAB 500 MG TAB PO ONE; +CLINDAMYCIN 900 MG in DEXTROSE 5% IN WATER 50 ML IVPB ONE; -HYDROmorphone 1 MG/ML 1 ML SYRINGE IVP PRN; +MELOXICAM 7.5 MG TAB PO ONE; -ONDANSETRON 4 MG/2 ML VIAL IVP ONE; +ONDANSETRON ODT 4 MG TAB PO ONE; +TRANEXAMIC ACID 1,000 MG in SODIUM CHLORIDE 0.9% 50 ML IVPB ONE; +fentaNYL (PF) 50 MCG/ML 2 ML AMP IV PRN
[2017-07-10] MEDS ORDERED: LACTATED RINGERS 1,000 ML IV ONE ×3 (11:19→15:24)
[2017-07-10] MEDS ORDERED: ROPIVACAINE 246.25 MG, EPINEPHrine 0.5 MG, KETOROLAC 30 MG, cloNIDine HCL/PF 80 MCG, WA... MISCELLANE ONE ×5 (12:39)
[2017-07-10] MEDS ORDERED: ROPIVACAINE 1,100 MG, SODIUM CHLORIDE 0.9% 330 ML MISCELLANE PRN ×2 (12:40)
--- NOTE | 2017-07-10 12:40 | P.ONQ ---
Anesthesiology Proc Note - PNB - Peripheral Nerve Block Performed Left Adductor Canal Infusion Time Out Performed: Yes Procedure Start Time: 11:46 Procedure Stop Time: 12:00 Indication: Acute Post-Operative Pain Sedation Type: Sedate with meaningful contact maintained Preparation: Sterile Prep Position: Supine Catheter: Indwelling Needle Types: On-Q Needle Size: 150mm (6") Needle Gauge: 20 Technique: Ultrasound Injectate: 0.5% Ropivacaine (see comment for volume) (30 mls) Blood Aspirated: No Pain Paresthesia on Injection Noted: No Resistance on Injection: Normal Events: Uneventful and Well Tolerated
[2017-07-10] MEDS ORDERED: SCOPOLAMINE 1.5MG/72HR PATCH TRANSDERM ONE (13:00)
[2017-07-10] MEDS ORDERED: fentaNYL (PF) 50 MCG/ML 2 ML AMP ONE (13:51)
[2017-07-10] MEDS ORDERED: PROPOFOL 10 MG/ML 20 ML VIAL IV ONE (13:51)
[2017-07-10] MEDS ORDERED: TRANEXAMIC ACID 1,000 MG/10 ML VIAL ONE (13:51)
[2017-07-10] MEDS ORDERED: MIDAZOLAM 2 MG/2 ML VIAL ONE (13:51)
[2017-07-10] MEDS ORDERED: SODIUM CHLORIDE 0.9% 100 ML BAG ONE (13:51)
[2017-07-10] MEDS ORDERED: KETAMINE 10 MG/ML 20 ML VIAL ONE (13:51)
[2017-07-10] MEDS ORDERED: CLINDAMYCIN 1,800 MG in SODIUM CHLORIDE 0.9% IRRIGATIO 3,000 ML IRRIGATION ONE (13:52)
[2017-07-10] MEDS ORDERED: hydrOXYzine PAMOATE 25 MG CAP PO PRN (15:36)
[2017-07-10] MEDS ORDERED: HYDROcodone/APAP 7.5-325MG 1 EACH TAB PO PRN ×2 (15:36)
[2017-07-10] MEDS ORDERED: MORPHINE SULFATE 4 MG/ML SYRINGE IVP PRN ×3 (15:36)
[2017-07-10] MEDS ORDERED: NALOXONE 0.4 MG/ML 1 ML VIAL IV PRN (15:36)
[2017-07-10] MEDS ORDERED: ONDANSETRON 4 MG/2 ML VIAL IVP PRN (15:36)
--- NOTE | 2017-07-10 15:36 | P.OP ---
Date of Procedure: 07/10/17 Preoperative Diagnosis: Left knee osteoarthritis Postoperative Diagnosis: Left knee osteoarthritis Procedure(s) Performed: Left total knee arthroplasty Implants: 1. Deirdre persona size 6 standard left cruciate retaining cemented femur 2. Deirdre persona size D left cemented tibia 3. Deirdre persona 12 mm medial congruent polyethylene tibial insert 4. Deirdre persona 35 mm all polyethylene cemented patella Anesthesia: regional (Adductor canal catheter), local, spinal Surgeon: Henri Martínez Estimated Blood Loss (ml): 50 Pathology: other (Bone) Condition: stable Disposition: PACU Indications for Procedure: 61-year-old patient seen with symptomatic left knee osteoarthritis. After treatment options were discussed, she elected to proceed with total knee arthroplasty. Operative Findings: see description of procedure Description of Procedure: Patient was taken to the operative suite having an adductor canal catheter placed by the department of anesthesia. Patient underwent a spinal anesthetic by the department of anesthesia. Patient was given preoperative IV intake antibiotics and TXA. A well-padded tourniquet was placed about the left lower extremity. The lower extremity was then prepped and draped in the normal sterile orthopedic fashion. The extremity was elevated, a tourniquet was insufflated to 300. A standard anterior incision was made sharply through skin. Dissection was taken down through the subcutaneous soft tissues down to the extensor mechanism. A medial arthrotomy was performed, patella was everted and knee was flexed. There was advanced osteoarthritis noted. A proximal tibial cutting guide was positioned. Proximal tibial cut was made. A distal intramedullary femoral cutting guide was positioned, distal femoral cut made. We placed the appropriate sizing guide and selected the appropriate size. A distal 4-in-1 femoral cutting block was positioned, distal femoral cuts were made. We now placed a trial femoral component into position, along with an appropriate size tibial tray and insert. We now took the knee through range of motion and had full extension good flexion and good overall soft tissue balance noted. The patella was everted and a flush cut made with patellar quad tendon. We templated the patella, appropriate drill holes were made. An appropriate trial patella was positioned, knee was taken through full range of motion with the patella tracking very nicely. The trial patella was removed. Drill holes were made through the femoral component. All trial components were removed after marking off the appropriate rotation of the tibia. Retractors were now positioned along the proximal tibia. An appropriate keel punch was made with the appropriate size tibial guide. At this point appropriate size implants were chosen and opened. The joint was irrigated copiously with pulse lavage mechanical irrigation. The posterior capsule was infiltrated with local analgesic. We mixed antibiotic methylmethacrylate. Once the methyl methacrylate was ready, the tibial component was cemented into place removing any excess methylmethacrylate. The femoral component was cemented into place removing the removing any excess methylmethacrylate. We then inserted the appropriate size polyethylene tibial insert. We made sure that it was locked into position. We took the knee into full extension, and then back in a flexion making sure we had removed any excess methylmethacrylate. The patellar component was then cemented down and secured with clamp. Excess methylmethacrylate removed. We kept the knee in full extension, patellar clamp in position until methylmethacrylate had hardened. Once it had hardened the patellar clamp was removed. The knee was taken through full range of motion. The patella tracked nicely. There was good soft tissue balancing. The tourniquet was now released. Additional hemostasis was achieved via electrocautery. Second gram of TXA was given. The wound was irrigated with pulse lavage mechanical irrigation. The extensor mechanism was repaired with Vicryl. We checked the repair with range of motion and it was stable. The subcutaneous soft tissues were repaired with Vicryl in layers. The skin was approximated with pernio/Dermabond. Sterile dressings were applied followed by loose web roll and Vlad bandage. The patient was transferred to a bed, and taken to recovery in stable and satisfactory condition.
--- NOTE | 2017-07-10 15:56 | XR ---
EXAMINATION TYPE: XR knee limited LT DATE OF EXAM: 07/10/2017 CLINICAL HISTORY: Left knee pain and arthritis status post total knee replacement. TECHNIQUE: Portable AP and crosstable lateral views of the left knee are obtained immediately postop eratively. COMPARISON: None FINDINGS: [place] osseous structures are somewhat demineralized. Metallic hardware from total left kn ee arthroplasty is seen and appears satisfactory in alignment and position. There is evidence of rec ent surgery with diffuse subcutaneous gas and soft tissue swelling noted. IMPRESSION: METALLIC HARDWARE FROM TOTAL LEFT KNEE ARTHROPLASTY IS SATISFACTORY IN ALIGNMENT.
[2017-07-10] MEDS: traMADol 50 MG TAB PO SCH ×2 (17:45→20:58)
[2017-07-10] MEDS: LACTATED RINGERS 1,000 ML IV SCH (17:46)
--- NOTE | 2017-07-10 18:43 | P.CONS ---
History of Present Illness - Reason for Consult Consult date: 07/10/17 Medical Management Requesting physician: Henri Martínez - Chief Complaint Post Left TKA. - History of Present Illness This is a 61-year-old female one of Dr. Gonzalez with a previous medical history significant for hypertension and hypertensive cardiovascular disease, hypothyroidism, history of ALLERGIC rhinitis, osteoarthritis, patient underwent right total knee arthroplasty that was done successfully by Dr. Martínez, and we were asked to see the patient for medical management. Patient is sitting up in bed she is complaining of increased nausea and the nurse had just gave her Zofran, she does complain of some abdominal pain as well she has not vomited yet she appears to be a bit uncomfortable. Review of Systems Constitutional: Denies anorexia, Denies chronic pain, Denies malaise, Denies weakness, Denies weight gain Eyes: denies blurred vision, denies bulging eye, denies decreased vision Ears: deny: decreased hearing Ears, nose, mouth and throat: Denies dysphagia, Denies neck lump, Denies sore throat Cardiovascular: Reports high blood pressure, Denies chest pain, Denies dyspnea on exertion, Denies rapid heart beat, Denies shortness of breath, Denies syncope Respiratory: Denies congestion, Denies cough with sputum, Denies home oxygen, Denies sleep apnea, Denies snoring, Denies wheezing Gastrointestinal: Reports abdominal pain, Reports nausea, Reports vomiting, Denies bloating, Denies heartburn, Denies melena Genitourinary: Denies dysuria Menstruation: Reports postmenopausal Musculoskeletal: Denies myalgias Musculoskeletal: left: knee pain, knee stiffness, absent: ankle pain, ankle stiffness, ankle swelling, elbow pain, elbow stiffness, elbow swelling, foot pain, foot stiffness, foot swelling, hand pain, hand stiffness, hand swelling, hip pain, hip stiffness, hip swelling, shoulder pain, shoulder stiffness, shoulder swelling, wrist pain, wrist stiffness, wrist swelling Integumentary: Denies pruritus, Denies rash Neurological: Denies numbness, Denies weakness Psychiatric: Denies anxiety, Denies depression Endocrine: Denies fatigue, Denies weight change Past Medical History Past Medical History: Hypertension, Osteoarthritis (OA), Sleep Apnea/CPAP/BIPAP , Thyroid Disorder Additional Past Medical History / Comment(s): supposed to use CPAP History of Any Multi-Drug Resistant Organisms: None Reported Past Surgical History: Cholecystectomy, Hysterectomy, Joint Replacement, Orthopedic Surgery Additional Past Surgical History / Comment(s): thyroidectomy, arthroscopy rt knee,rt knee replacement Past Anesthesia/Blood Transfusion Reactions: Motion Sickness, Postoperative Nausea & Vomiting (PONV) Smoking Status: Never smoker - Past Family History Mother Family Medical History: Cancer Sister(s) Family Medical History: Cancer, Coronary Artery Disease (CAD) Father Family Medical History: Pulmonary Embolus Son(s) Family Medical History: No Reported History Daughter(s) Family Medical History: No Reported History Medications and Allergies Home Medications Medication Instructions Recorded Confirmed Type Calcium Citrate 250 mg PO DAILY 11/21/16 07/10/17 History Cranberry Fruit Extract [Cranberry] 200 mg PO DAILY 11/21/16 07/10/17 History Ergocalciferol (Vitamin D2) 50,000 unit PO SA 11/21/16 07/10/17 History [Vitamin D2] Garlic 1 tab PO DAILY 11/21/16 07/10/17 History Levothyroxine Sodium [Synthroid] 125 mcg PO DAILY 11/21/16 07/10/17 History Loratadine [Claritin] 10 mg PO DAILY 11/21/16 07/10/17 History Multivit with Calcium,Iron,Min 1 tab PO DAILY 11/21/16 07/10/17 History [Women's Multivitamin] Olmesartan/Amlodipin/Hcthiazid 1 tab PO DAILY 11/21/16 07/10/17 History [Tribenzor 20-5-12.5 mg Tablet] Vitamin B Complex 1 cap PO DAILY 11/21/16 07/10/17 History Ibuprofen 800 mg PO BID 06/30/17 07/10/17 History Krill/Om-3/Dha/Epa/Phospho/Ast 1 cap PO DAILY 06/30/17 07/10/17 History [[place]-3 Krill Oil 300 mg Sfgl] Magnesium Oxide [Lim] 500 mg PO DAILY 07/10/17 07/10/17 History Allergies Allergy/AdvReac Type Severity Reaction Status Date / Time amoxicillin Allergy Rash/Hives Verified 07/10/17 17:17 cefuroxime [From Ceftin] Allergy Unknown Verified 07/10/17 17:17 ciprofloxacin [From Cipro] Allergy Unknown Verified 07/10/17 17:17 sulfamethoxazole Allergy Unknown Verified 07/10/17 17:17 [From Septra] tioconazole Allergy Unknown Verified 07/10/17 17:17 [From Monistat 1 (tioconazole)] trimethoprim [From Septra] Allergy Unknown Verified 07/10/17 17:17 hydromorphone [From Dilaudid] AdvReac Nausea & Verified 07/10/17 17:17 Vomiting Physical Exam Vitals: Vital Signs Temp Pulse Pulse Resp BP Pulse Ox 07/10/17 16:19 66 16 90/53 98 07/10/17 16:01 61 16 90/53 98 07/10/17 15:45 62 16 92/53 98 07/10/17 15:30 97.7 F 71 16 95/51 98 07/10/17 12:08 59 L 20 120/58 99 07/10/17 11:11 75 20 135/65 96 Intake and Output 07/10/17 07/10/17 07/10/17 06:59 14:59 22:59 Intake Total 2056 150 Output Total 50 Balance 2056 100 Intake: IV 2056 150 Output: Estimated Blood Loss 50 - Constitutional General appearance: no acute distress - EENT Eyes: anicteric sclerae, EOMI, PERRLA, no ptosis, no scleral icterus, normal appearance ENT: hearing grossly normal, NA/AT, normal oropharynx, no thrush Ears: bilateral: normal - Neck Neck: no lymphadenopathy, normal ROM, no rigidity, no stridor, no thyromegaly Carotids: bilateral: upstroke normal Thyroid: bilateral: normal size - Respiratory Respiratory: bilateral: diminished, negative: dullness, rales, rhonchi, wheezing , prolonged expiration, prolonged inspiration - Cardiovascular Rhythm: regular Heart sounds: normal: S1, S2 Abnormal Heart Sounds: no systolic murmur, no S3 Gallop - Gastrointestinal General gastrointestinal: normal bowel sounds, soft, no tenderness, no umbilical hernia, no ventral hernia - Integumentary Integumentary: normal, normal turgor - Neurologic Neurologic: CNII-XII intact - Musculoskeletal Musculoskeletal: strength equal bilaterally - Psychiatric Psychiatric: A&O x's 3, appropriate affect, intact judgment & insight Assessment and Plan Assessment: Assessment and plan: 1. Post operative day #0 status post left total knee arthroplasty. Continue incentive Spirometer to reduce the incidence of atelectasis and hospital- acquired pneumonia, continue with DVT prophylaxis as per orthopedic recommend ablation, continue with physical therapy, current pain management as outlined by orthopedic surgery, physical therapy evaluation tomorrow morning. 2. Hypertension and hypertensive cardiovascular disease. Continue patient on Tribenzor 20/5/12.5 mg orally once every day. 3. Hypothyroidism. Continue patient on Synthroid 125 g orally once every day. 4. Vitamin D deficiency. hold vit D supplement. 5. ALLERGIC rhinitis. Continue loratadine 10 mg orally once every day. 6. Osteoarthritis. Continue current pain management. 7. DVT prophylaxis. Continue Lovenox 30 mg subcutaneously every 12 hours. 8. GI prophylaxis. Continue current management. 9. Thank you Dr. Martínez for allowing us to participate in the care of your patient, we will be happy to follow the patient along with you.
[2017-07-10] MEDS: CLINDAMYCIN 900 MG in DEXTROSE 5% IN WATER 50 ML IVPB SCH ×2 (19:26)
[2017-07-10] MEDS ORDERED: SENNOSIDES-DOCUSATE SODIUM 1 EACH TAB PO SCH (21:00)
[2017-07-10] MEDS: ENOXAPARIN 30 MG/0.3 ML SYRINGE SQ SCH (21:08)
[2017-07-11] MEDS: CLINDAMYCIN 900 MG in DEXTROSE 5% IN WATER 50 ML IVPB SCH ×2 (00:39)
[2017-07-11] MEDS: LACTATED RINGERS 1,000 ML IV SCH ×2 (00:40→12:52)
[2017-07-11] MEDS ORDERED: LEVOTHYROXINE 125 MCG TAB PO SCH (06:30)
[2017-07-11 07:33] VITALS: RESP 16; TEMP 97.3
[2017-07-11 07:34] VITALS: BP 110/71
[2017-07-11 07:38] LABS: Basophils % (A) 0 %; Eosinophils % (A) 0 %; HCT 40.6 % (34.0-46.0); HGB 13.9 gm/dL (11.4-16.0); Lymphocytes # (A) 1.6 k/uL (1.0-4.8); Lymphocytes % (A) 8 %; MCH 29.9 pg (25.0-35.0); MCHC 34.2 g/dL (31.0-37.0); MCV 87.4 fL (80.0-100.0); Mean Platelet Volume 7.6; Monocytes % (A) 5 %; Neutrophils % (A) 86 %; Platelet Count 313 k/uL (150-450); RBC 4.64 m/uL (3.80-5.40); RDW 12.5 % (11.5-15.5); WBC 19.7 k/uL (3.8-10.6)
[2017-07-11] MEDS ORDERED: MELOXICAM 7.5 MG TAB PO SCH (09:00)
[2017-07-11] MEDS ORDERED: LOSARTAN 50 MG TAB PO SCH (09:00)
[2017-07-11] MEDS ORDERED: MAGNESIUM OXIDE 400 MG TAB PO SCH (09:00)
[2017-07-11] MEDS ORDERED: amLODIPine 5 MG TAB PO SCH (09:00)
[2017-07-11] MEDS ORDERED: HYDROCHLOROTHIAZIDE 12.5 MG CAP PO SCH (09:00)
[2017-07-11] MEDS ORDERED: FAMOTIDINE 20 MG TAB PO SCH (09:00)
[2017-07-11] MEDS ORDERED: LORATADINE 10 MG TAB PO SCH (09:00)
[2017-07-11 09:15] VITALS: PULSE 62
[2017-07-11] MEDS: ENOXAPARIN 30 MG/0.3 ML SYRINGE SQ SCH (09:15)
[2017-07-11] MEDS: traMADol 50 MG TAB PO SCH ×2 (09:16→12:38)
[2017-07-11] MEDS ORDERED: B COMPLEX-VIT C-VIT E-ZINC 1 EACH TAB PO SCH (12:00)
[2017-07-11] MEDS ORDERED: MULTIVITAMINS, THERA 1 EACH TAB PO SCH (12:00)
--- NOTE | 2017-07-11 13:38 | P.PN ---
Subjective Progress Note Date: 07/11/17 Principal diagnosis: Status post left total knee arthroplasty Patient seen today resting in her hospital bed, her is present at bedside. She appears comfortable, no increase in pain to the night. She's ambulated with therapy very well. She denies any headaches, lightheadedness, chest pain or shortness of breath. Objective - Vital Signs Vital signs: Vital Signs Temp 97.3 F L 07/11/17 07:32 Pulse 62 07/11/17 09:14 Resp 16 07/11/17 07:45 BP 110/71 07/11/17 07:33 Pulse Ox 95 07/11/17 07:33 Intake & Output 07/10/17 07/11/17 07/11/17 18:59 06:59 18:59 Intake Total 2207 1050 Output Total 50 Balance 2157 1050 Weight 82.554 kg Intake: IV 2207 Intake, IV Titration 1050 Amount Clindamycin 900 mg In 100 Dextrose 5% in Water 50 ml @ 100 mls/hr IVPB Q6H [facility] Rx#:[id number] Lactated Ringers 1,000 ml 950 @ 100 mls/hr IV .Q10H [facility] Rx#:[id number] Output: Estimated Blood Loss 50 Other: Voiding Method Bedside Commode # Voids 1 - Exam Left lower extremity: Incision is clean, dry, and intact. The prineo tape is in good condition. There is minimal soft tissue swelling and ecchymosis surrounding the medial and lateral aspects of the incision. Calf is soft, no tenderness with palpation. Plantar flexion, dorsiflexion, EHL, FHL are intact. Sensory exam to light touch throughout the extremity is intact, dorsal pedis pulses 2+. - Labs CBC & Chem 7: 07/11/17 06:50 Labs: Abnormal Lab Results - Last 24 Hours (Table) 07/11/17 Range/Units 06:50 WBC 19.7 H (3.8-10.6) k/uL Neutrophils # 17.0 H (1.3-7.7) k/uL Assessment and Plan Plan: Assessment: 1. Postop day 1 status post left total knee arthroplasty Plan: 1. Pain control, we'll discharge home on oral medication 2. GI and DVT prophylaxis, we'll discharge home on aspirin 325 mg twice a day 3. Wound care instructions were discussed 4. Home therapy and use of CPM 5. Medical recommendations 6. Discharge planning: Patient likely to be discharged home tomorrow Time with Patient: Less than 30
--- NOTE | 2017-07-11 13:45 | P.DS ---
Providers Date of admission: 07/10/17 10:38 Expected date of discharge: 07/11/17 Attending physician: Henri Martínez Consults: 07/10/17 15:36 Consult Physician Routine Consulting Provider: Roger Tejeda Consult Reason/Comments: Medical management Do you want consulting provider notified?: Already Contacted Primary care physician: [facility] Hospital Course: Date of admission: 07/10/2017 Date of discharge: 07/11/2014 Admission diagnosis: Status post left total knee arthroplasty Discharge diagnosis: Same Attending physician: Dr. Martínez Surgical procedures: Left total knee arthroplasty Brief history: Patient is a 61-year-old female with a history of progressive primary left knee osteoarthritis. At this point patient has failed conservative treatment measures and has opted to proceed with a elective left total knee arthroplasty. Hospital course: Details of patient's surgery can be found in operative report. Patient tolerated the procedure well and was subsequently transported to orthopedic floor. Patient's orthopeidc and medical care was provided daily. Patient had daily laboratory tests performed for evaluation of overall blood counts. Patient had daily physical therapy to include strengthening range of motion as well as education with walker ambulation. Patient had daily CPM usage as part of their physical therapy program. Patient was treated with Lovenox for their postoperative DVT prophylaxis during their inpatient stay. Patient was noted to have a relatively uneventful postoperative course. Patient reported satisfactory pain control with oral pain medications by postoperative day 0. Patient showed satisfactory progress with physical therapy. Patient moved steadily through the program and had no difficulty meeting the goals by postoperative day 1. Given patient's otherwise satisfactory course and having met physical therapy goals, plan is to discharge patient home on postoperative day 1. Discharge condition/disposition: Patient will be discharged home in stable condition. Discharge medications: Instructions are given on resumption of patient's normal daily medications per primary care recommendation, in addition patient will be prescribed [place] 7.5 mg/325 mg, tramadol 50 mg, Colace 100 mg, Pepcid 20 mg, aspirin 325 mg. Discharge instructions: 1. Wound care and infection precautions, keep incision dry and covered while showering, no lotions, creams, moisturizers. No soaking, tubs, pools, hottubs. Do not scrub over the incision. 2. Weight-bear as tolerated] with walker / cane until follow-up. 3. Ice and elevate when necessary. Do not exceed 20 minutes per hour with ice pack. 4. Utilize compression sleeve until seen at first follow up appointment. 5. Visiting nursing care. 6. Home physical therapy [including home CPM]. 7. Pain meds and anticoagulants per prescription. 8. Pain medication has potential to cause constipation. Increase oral fluid and fiber intake. Contact primary care provider if you have not had a bowel movement within 48 hours after discharge 9. No anti-inflammatory medication until discussed at first post operative visit, this including Motrin, Aleve, Mobic, Diclofenac. 10. Follow up in office at 2 weeks postop with Rick Russell PA-C 11. Follow up with your primary care doctor 7-10 days after discharge. 12. Contact [facility] with any questions, . Procedures: Left total knee arthroplasty Patient Condition at Discharge: Good Plan - Discharge Summary Discharge Rx Participant: Yes New Discharge Prescriptions: New Aspirin 325 mg PO BID #60 tab Docusate [Colace] 100 mg PO DAILY #30 capsule Famotidine [Pepcid] 20 mg PO DAILY #30 tablet HYDROcodone/APAP 7.5-325MG [[place] 7.5] 1 - 2 each PO Q6HR PRN #60 tab PRN Reason: Pain traMADol HCl [Ultram] 50 mg PO Q6H PRN #40 tab PRN Reason: Pain Continue Loratadine [Claritin] 10 mg PO DAILY Levothyroxine Sodium [Synthroid] 125 mcg PO DAILY Vitamin B Complex 1 cap PO DAILY Olmesartan/Amlodipin/Hcthiazid [Tribenzor 20-5-12.5 mg Tablet] 1 tab PO DAILY Multivit with Calcium,Iron,Min [Women's Multivitamin] 1 tab PO DAILY Garlic 1 tab PO DAILY Ergocalciferol (Vitamin D2) [Vitamin D2] 50,000 unit PO SA Cranberry Fruit Extract [Cranberry] 200 mg PO DAILY Calcium Citrate 250 mg PO DAILY Krill/Om-3/Dha/Epa/Phospho/Ast [[place]-3 Krill Oil 300 mg Sfgl] 1 cap PO DAILY Magnesium Oxide [Lim] 500 mg PO DAILY Discharge Medication List Calcium Citrate 250 mg PO DAILY 11/21/16 [History] Cranberry Fruit Extract [Cranberry] 200 mg PO DAILY 11/21/16 [History] Ergocalciferol (Vitamin D2) [Vitamin D2] 50,000 unit PO SA 11/21/16 [History] Garlic 1 tab PO DAILY 11/21/16 [History] Levothyroxine Sodium [Synthroid] 125 mcg PO DAILY 11/21/16 [History] Loratadine [Claritin] 10 mg PO DAILY 11/21/16 [History] Multivit with Calcium,Iron,Min [Women's Multivitamin] 1 tab PO DAILY 11/21/16 [ History] Olmesartan/Amlodipin/Hcthiazid [Tribenzor 20-5-12.5 mg Tablet] 1 tab PO DAILY [History] Vitamin B Complex 1 cap PO DAILY 11/21/16 [History] Krill/Om-3/Dha/Epa/Phospho/Ast [[place]-3 Krill Oil 300 mg Sfgl] 1 cap PO DAILY [History] Magnesium Oxide [Lim] 500 mg PO DAILY 07/10/17 [History] Aspirin 325 mg PO BID #60 tab 07/11/17 [Rx] Docusate [Colace] 100 mg PO DAILY #30 capsule 07/11/17 [Rx] Famotidine [Pepcid] 20 mg PO DAILY #30 tablet 07/11/17 [Rx] HYDROcodone/APAP 7.5-325MG [[place] 7.5] 1 - 2 each PO Q6HR PRN #60 tab 07/11/17 [ Rx] traMADol HCl [Ultram] 50 mg PO Q6H PRN #40 tab 07/11/17 [Rx] Follow up Appointment(s)/Referral(s): [facility], [REFERRING] - Parrish Russell PAC [PHYSICIAN NANOFABRICATION SPECIALIST] - 2 Weeks Activity/Diet/Wound Care/Special Instructions: Orthopedic Discharge Instructions: 1. Wound care and infection precautions, keep incision dry and covered while showering, no lotions, creams, moisturizers. No soaking, pools, hot tubs. Do not scrub over incision. 2. Weight-bear as tolerated with walker / cane until follow-up. 3. Ice and elevate when necessary. Do not exceed 20 minutes per hour with ice pack. 4. Utilize compression sleeve until seen at first follow up appointment. 5. Visiting nursing care. 6. Home physical therapy including home CPM. 7. Pain meds and anticoagulants per prescription. 8. Pain medication has potential to cause constipation. Increase oral fluid and fiber intake. Contact primary care provider if you have not had a bowel movement within 48 hours after discharge. 9. No anti-inflammatory medication until discussed at first post operative visit, this including Motrin, Aleve, Mobic, Diclofenac. 10. Follow up in office at 2 weeks postop with Rick Russell PA-C 11. Follow up with your primary care doctor 7-10 days after discharge. 12. Contact [facility] with any questions, . Discharge Disposition: HOME WITH HOME HEALTH SERVICES
--- NOTE | 2017-07-11 20:25 | P.PN ---
Subjective Progress Note Date: 07/11/17 This is a 61-year-old female one of Dr. Gonzalez with a previous medical history significant for hypertension and hypertensive cardiovascular disease, hypothyroidism, history of ALLERGIC rhinitis, osteoarthritis, patient underwent right total knee arthroplasty that was done successfully by Dr. Martínez, and we were asked to see the patient for medical management. Patient is sitting up in bed she is complaining of increased nausea and the nurse had just gave her Zofran, she does complain of some abdominal pain as well she has not vomited yet she appears to be a bit uncomfortable. 07/11: Patient states she feels better today. Nausea is improved. Patient is scheduled for discharge home today. She is on aspirin for DVT prophylaxis. Objective - Vital Signs Vital signs: Vital Signs Temp 97.3 F L 07/11/17 07:32 Pulse 62 07/11/17 09:14 Resp 16 07/11/17 07:45 BP 110/71 07/11/17 07:33 Pulse Ox 95 07/11/17 07:33 Intake & Output 07/10/17 07/11/17 07/11/17 18:59 06:59 18:59 Intake Total 2207 1050 Output Total 50 Balance 2157 1050 Weight 82.554 kg Intake: IV 2207 Intake, IV Titration 1050 Amount Clindamycin 900 mg In 100 Dextrose 5% in Water 50 ml @ 100 mls/hr IVPB Q6H [facility] Rx#:[id number] Lactated Ringers 1,000 ml 950 @ 100 mls/hr IV .Q10H [facility] Rx#:[id number] Output: Estimated Blood Loss 50 Other: Voiding Method Bedside Commode # Voids 1 - Exam General appearance: no acute distress - EENT Eyes: anicteric sclerae, EOMI, PERRLA, no ptosis, no scleral icterus, normal appearance ENT: hearing grossly normal, NA/AT, normal oropharynx, no thrush Ears: bilateral: normal - Neck Neck: no lymphadenopathy, normal ROM, no rigidity, no stridor, no thyromegaly Carotids: bilateral: upstroke normal Thyroid: bilateral: normal size - Respiratory Respiratory: bilateral: diminished, negative: dullness, rales, rhonchi, wheezing , prolonged expiration, prolonged inspiration - Cardiovascular Rhythm: regular Heart sounds: normal: S1, S2 Abnormal Heart Sounds: no systolic murmur, no S3 Gallop - Gastrointestinal General gastrointestinal: normal bowel sounds, soft, no tenderness, no umbilical hernia, no ventral hernia - Integumentary Integumentary: normal, normal turgor - Neurologic Neurologic: CNII-XII intact - Musculoskeletal Musculoskeletal: strength equal bilaterally - Psychiatric Psychiatric: A&O x's 3, appropriate affect, intact judgment & insight - Labs CBC & Chem 7: 07/11/17 06:50 Labs: Abnormal Lab Results - Last 24 Hours (Table) 07/11/17 Range/Units 06:50 WBC 19.7 H (3.8-10.6) k/uL Neutrophils # 17.0 H (1.3-7.7) k/uL Assessment and Plan Plan: 1. Status post left total knee arthroplasty. Continue incentive Spirometer to reduce the incidence of atelectasis and hospital-acquired pneumonia, continue with DVT prophylaxis as per orthopedic recommend ablation, continue with physical therapy, current pain management as outlined by orthopedic surgery, physical therapy evaluation tomorrow morning. 2. Hypertension and hypertensive cardiovascular disease. Continue patient on Tribenzor 20/5/12.5 mg orally once every day. 3. Hypothyroidism. Continue patient on Synthroid 125 g orally once every day. 4. Vitamin D deficiency. hold vit D supplement. 5. ALLERGIC rhinitis. Continue loratadine 10 mg orally once every day. 6. Osteoarthritis. Continue current pain management. 7. DVT prophylaxis. Continue Lovenox 30 mg subcutaneously every 12 hours. 8. GI prophylaxis. Continue current management. Discharge plan: Home with [facility] Impression and plan of care have been directed as dictated by the signing physician. Joycelyn Chiang nurse practitioner acting as scribe for signing physician.
== END 2017-07-11 15:25 | disposition home health service (06) | DRG 470 ==
LOC: 2ORMAIN 10:38 → 3SUR 15:30
PROVIDERS: ADMIT Orthopaedic Surgery; ATTEND Orthopaedic Surgery
PROC: 0SRD0J9 Replacement of Left Knee Joint with Synthetic Substitute, Cemented, Open Approach (ICD-10-PCS; principal; 2017-07-10 12:55)
DX: M17.12 Unilateral primary osteoarthritis, left knee (principal); I11.9 Hypertensive heart disease without heart failure; E55.9 Vitamin D deficiency, unspecified; E89.0 Postprocedural hypothyroidism; J30.9 Allergic rhinitis, unspecified; G43.909 Migraine, unspecified, not intractable, without status migrainosus; R10.9 Unspecified abdominal pain; R11.0 Nausea; Z96.651 Presence of right artificial knee joint; Z90.710 Acquired absence of both cervix and uterus; Z90.49 Acquired absence of other specified parts of digestive tract; Z88.1 Allergy status to other antibiotic agents; Z88.5 Allergy status to narcotic agent; Z88.0 Allergy status to penicillin; Z88.2 Allergy status to sulfonamides; Z88.8 Allergy status to other drugs, medicaments and biological substances; Z79.890 Hormone replacement therapy; Z79.899 Other long term (current) drug therapy
CPT/HCPCS: 85025

== ENCOUNTER → 2017-12-14 | Outpatient (CLI) | payer BC ==
[2017-12-14 11:14] LABS: HCT 49.3 % (34.0-46.0); MCH 29.7 pg (25.0-35.0); MCHC 32.4 g/dL (31.0-37.0); MCV 91.6 fL (80.0-100.0); Mean Platelet Volume 6.9; Platelet Count 352 k/uL (150-450); RBC 5.38 m/uL (3.80-5.40); RDW 12.9 % (11.5-15.5); WBC 8.9 k/uL (3.8-10.6)
[2017-12-14 11:39] LABS: ALT 92 U/L (9-52); AST 68 U/L (14-36); Albumin 4.2 g/dL (3.5-5.0); Alkaline Phosphatase 86 U/L (38-126); Anion Gap 9 mmol/L; Blood Urea Nitrogen 19 mg/dL (7-17); Calcium 9.9 mg/dL (8.4-10.2); Carbon Dioxide 32 mmol/L (22-30); Chloride 100 mmol/L (98-107); Glucose 116 mg/dL (74-99); Potassium 4.3 mmol/L (3.5-5.1); Sodium 141 mmol/L (137-145); Total Bilirubin 0.7 mg/dL (0.2-1.3); Total Protein 7.4 g/dL (6.3-8.2)
[2017-12-14 11:55] LABS: T4, Free (Free Thyroxine) 1.64 ng/dL (0.78-2.19)
[2017-12-14 17:48] LABS: Thyroglobulin <0.20 ng/mL (1.60-59.90)
[2017-12-14 18:09] LABS: Vitamin D 25 Hydroxy 30.4 ng/mL (30.0-100.0)
== END | disposition home or self-care (01) ==
LOC: LABWHC1 09:46
PROVIDERS: ATTEND Internal Medicine Endocrinology, Diabetes & Metabolism
DX: C73 Malignant neoplasm of thyroid gland (principal); E55.9 Vitamin D deficiency, unspecified; R53.83 Other fatigue; R73.01 Impaired fasting glucose; D64.9 Anemia, unspecified; Z78.0 Asymptomatic menopausal state
CPT/HCPCS: 36415; 80053; 82306; 83001; 83036; 84432; 84439; 84443; 85027; 86800

== ENCOUNTER → 2018-02-19 | Outpatient (CLI) | payer BC ==
--- NOTE | 2018-02-20 13:29 | MM ---
Reason for exam: screening (asymptomatic). Last mammogram was performed 1 year and 9 months ago. History: Patient is postmenopausal. Family history of breast cancer in mother at age 57. Physical Findings: A clinical breast exam by your physician is recommended on an annual basis and results should be correlated with mammographic findings. MG 3D Screening Mammo W/Cad Bilateral CC and MLO view(s) were taken. XCCM view(s) were taken of the left breast. Prior study comparison: May 09, 2016, bilateral MG 3d screening mammo w/cad. May 01, 2015, bilateral MG 3d screening mammo w/cad. The breast tissue is heterogeneously dense. This may lower the sensitivity of mammography. There is chronic nodularity in the left breast. There is no discrete abnormality. ASSESSMENT: Negative, BI-RAD 1 RECOMMENDATION: Routine screening mammogram of both breasts in 1 year.
== END | disposition home or self-care (01) ==
LOC: RADMAMWWP 13:29
PROVIDERS: ATTEND Family Medicine
DX: Z12.31 Encounter for screening mammogram for malignant neoplasm of breast (principal)
CPT/HCPCS: 77063; 77067

== ENCOUNTER → 2018-10-12 | Outpatient (CLI) | payer MEDICARE ==
[2018-10-12 14:56] LABS: African American GFR (CKD) >90 (>60 ml/min/1.73 sqM); Blood Urea Nitrogen 16 mg/dL (7-17)
--- NOTE | 2018-10-12 16:04 | CT ---
EXAMINATION TYPE: CT brain wo/w con DATE OF EXAM: 10/12/2018 COMPARISON: CT brain 03/30/2017 HISTORY: c/o dizziness and htn CT DLP: 2208 mGycm Automated exposure control for dose reduction was used. Helical imaging through the brain pre and pos t intravenous contrast. CONTRAST: CT scan of the head is performed with IV Contrast, patient injected with 100 mL of Isovue 300. FINDINGS: There is no abnormal enhancing mass or midline shift identified. The ventricles and sulci are within normal limits in size. There are some foci of white matter low-attenuation in the periventricular l ocations similar to prior exam. The globes are intact and the visualized sinuses are clear. IMPRESSION: Age-related changes of atrophy and probable chronic small vessel ischemia.
== END | disposition home or self-care (01) ==
LOC: RADCTMAIN 14:21
PROVIDERS: ATTEND Family Medicine
DX: G31.1 Senile degeneration of brain, not elsewhere classified (principal); I10 Essential (primary) hypertension; Z88.0 Allergy status to penicillin; Z88.1 Allergy status to other antibiotic agents; Z91.018 Allergy to other foods; Z88.8 Allergy status to other drugs, medicaments and biological substances
CPT/HCPCS: 82565; 84520; 70470; 36415; Q9967

== ENCOUNTER → 2018-10-24 | Outpatient (CLI) | payer MEDICARE ==
--- NOTE | 2018-10-24 11:15 | US ---
EXAMINATION TYPE: US carotid duplex BILAT DATE OF EXAM: 10/24/2018 COMPARISON: None CLINICAL HISTORY: H81.49 Vertigo. Dizzy. HTN controlled with meds. EXAM MEASUREMENTS: RIGHT: Peak Systolic Velocity (PSV) cm/sec ----- Right CCA: 80.2 ----- Right ICA: 69.9 ----- Right ECA: 73.2 ICA/CCA ratio: 0.9 RIGHT: End Diastole cm/sec ----- Right CCA: 21.1 ----- Right ICA: 24.7 ----- Right ECA: 12.0 LEFT: Peak Systolic Velocity (PSV) cm/sec ----- Left CCA: 82.8 ----- Left ICA: 79.7 ----- Left ECA: 71.5 ICA/CCA ratio: 1.0 LEFT: End Diastole cm/sec ----- Left CCA: 23.8 ----- Left ICA: 22.6 ----- Left ECA: 12.0 VERTEBRALS (direction of flow): Right Vertebral: Antegrade Left Vertebral: Antegrade Rhythm: Normal No wall thickening, elevated velocities or significant stenosis. Plaque seen in left bulb. IMPRESSION: Mild degree of grayscale atheromatous plaquing with no sonographically evident hemodynam ically significant stenosis within either visualized carotid arterial system. Criteria for Assigning % of Stenosis / Diameter reduction (Estimation based on the indirect measurements of the internal carotid artery velocities (ICA PSV). 1. Normal (no stenosis)=ICA PSV < 125 cm/s: ratio < 2.0: ICA EDV<40 cm/s. 2. Less than 50% stenosis=ICA PSV < 125 cm/s: ratio < 2.0: ICA EDV<40 cm/s. 3. 50 to 69% stenosis=ICA PSV of 125 to 230 cm/s: ration 2.0 ? 4.0: ICA EDV 40-100 cm/s. 4. Greater than 70% stenosis to near occlusion= ICA PSV > 230 cm/s: ratio > 4.0: ICA EDV > 100 cm/s. 5. Near occlusion= ICA PSV velocities may be low or undetectable: variable ratio and ICA EDV. 6. Total occlusion=unable to detect flow.
== END | disposition home or self-care (01) ==
LOC: RADUSWWP 10:10
PROVIDERS: ATTEND Family Medicine
DX: I67.2 Cerebral atherosclerosis (principal); H81.49 Vertigo of central origin, unspecified ear; Z88.0 Allergy status to penicillin; Z88.1 Allergy status to other antibiotic agents; Z91.018 Allergy to other foods
CPT/HCPCS: 93880

== ENCOUNTER → 2018-12-14 | Outpatient (CLI) | payer MEDICARE ==
[2018-12-14 18:49] LABS: African American GFR (CKD) 110.9 (60.0-200.0); Albumin 4.5 g/dL (3.80-4.90); Albumin/Globulin Ratio 1.88 (1.60-3.17); Anion Gap 9.9 mmol/L (4.00-12.00); BUN/Creat Ratio 26.67 Ratio (12.00-20.00); Calcium 9.6 mg/dL (8.7-10.3); Carbon Dioxide 29.1 mmol/L (21.6-31.8); Globulin 2.4 g/dL (1.6-3.3); Non-African American GFR(CKD) 95.7 (60.0-200.0); Total Bilirubin 0.6 mg/dL (0.3-1.2); Total Protein 6.9 g/dL (6.2-8.2)
[2018-12-14 18:51] LABS: Vitamin D 25 Hydroxy 45.4 ng/mL (30.0-100.0)
[2018-12-14 18:57] LABS: T4, Free (Free Thyroxine) 1.8 ng/dL (0.80-1.80)
[2018-12-14 20:38] LABS: Hemoglobin A1C 6.2 % (4.0-6.0)
== END | disposition home or self-care (01) ==
LOC: LABWHC1 13:31
PROVIDERS: ATTEND Internal Medicine
DX: R73.09 Other abnormal glucose (principal); C73 Malignant neoplasm of thyroid gland; E55.9 Vitamin D deficiency, unspecified; E89.0 Postprocedural hypothyroidism
CPT/HCPCS: 36415; 80053; 82306; 83036; 84432; 84439; 84443; 86800

== ENCOUNTER → 2018-12-19 | Outpatient (CLI) | payer MEDICARE ==
--- NOTE | 2018-12-24 17:13 | EEG ---
ELECTROENCEPHALOGRAM REPORT ELECTRONYSTAGMOGRAPHIC REPORT: AGE: 63 REFERRING PHYSICIAN: Dr. Dennis. VNG INDICATIONS: Dizziness beginning in July 2018, including vertigo, gradual onset, associated with ear infection and staying the same, occurring at least once a day for 1-2 minutes at a time. Dizziness may be precipitated by positional changes such as rolling over in bed or going from a lying to a seated position or looking up, head back position. VNG FINDINGS: SPONTANEOUS NYSTAGMUS: SACCADES: Saccades shows mildly impaired saccade accuracies and borderline peak velocities but intact latencies. GAZE TEST: Gaze with fixation shows no nystagmus in any of the directions of gaze including centrally with vision denied. SINUSOIDAL TRACKING: Tracking shows persistent mild break ups. OKN TEST: Optokinetic nystagmus shows borderline asymmetry at slower speeds. JULITA-HALLPIKE TEST: [place]-Hallpike maneuvers i.e. dynamic position testing is unremarkable. POSITION TEST: Static position testing in 6 different positions with eyes open and vision denied shows no nystagmus. CALORIC TEST: Caloric testing shows a 14% unilateral left caloric weakness which is within normal limits. IMPRESSION: This is an abnormal VNG due to impaired saccades and tracking which are indicators favoring central nervous system dysfunction. Other aspects of this VNG are unremarkable. No evidence for vestibulopathy. Clinical correlation necessary. MMODL / IJN: [id number] /
== END | disposition home or self-care (01) ==
LOC: NEUROMAIN 06:47
PROVIDERS: ATTEND Otolaryngology
DX: R42 Dizziness and giddiness (principal)
CPT/HCPCS: 92537; 92540

== ENCOUNTER → 2019-01-11 | Outpatient (CLI) | payer MEDICARE ==
[2019-01-11 16:44] LABS: African American GFR (CKD) >90 (>60 ml/min/1.73 sqM); Blood Urea Nitrogen 16 mg/dL (7-17)
--- NOTE | 2019-01-13 20:48 | CT ---
EXAMINATION TYPE: CT iac w con DATE OF EXAM: 01/11/2019 COMPARISON: 10/12/2018 HISTORY: 63-year-old female Vertigo and hearing loss. CT DLP: 142.7 mGycm Automated exposure control for dose reduction was used. TECHNIQUE: Contiguous high-resolution axial scanning of the temporal bones performed with IV Contras t, patient injected with 100ml mL of Isovue 300. Coronal reformatted images obtained. FINDINGS: There is no abnormality of visualized intracranial structures. External auditory canals are patent. Minimal debris on the right. The middle ear cavities and right mastoid air cells are well pneumatized. There is minimal trapped fl uid within a posterior inferior left mastoid air cell. Remainder of the left mastoid air cells are we ll pneumatized. There is no abnormality of middle ear ossicles. The round and oval windows are normal. There is no abnormality of bony labyrinths. The vestibular and cochlear aqueducts are well visualized. No dehiscence of the superior semicircular canals. The facial nerve canal is normal bilaterally. The internal auditory canal and meati are symmetrical bilaterally. There is no evidence of fractures. Leftward nasal septal deviation. Scattered trace mucosal thickening ethmoid air cells. Reformatted images confirm above findings. IMPRESSION: Only minimal trapped fluid in one of the inferior left mastoid air cells. Possibly incidental and tra nsient. Correlate for any mastoid pain to exclude mastoiditis. Otherwise, no specific abnormality see n on temporal bone CT.
== END | disposition home or self-care (01) ==
LOC: RADCTMAIN 15:55
PROVIDERS: ATTEND Otolaryngology
DX: R42 Dizziness and giddiness (principal)
CPT/HCPCS: 82565; 84520; 70481; 36415; Q9967

== ENCOUNTER → 2019-03-15 | Outpatient (CLI) | payer MEDICARE ==
--- NOTE | 2019-03-19 13:14 | MM ---
Reason for exam: screening (asymptomatic). Last mammogram was performed 1 year and 1 month ago. History: Patient is postmenopausal. Family history of breast cancer in mother at age 57. Physical Findings: A clinical breast exam by your physician is recommended on an annual basis and results should be correlated with mammographic findings. MG 3D Screening Mammo W/Cad Bilateral CC and MLO view(s) were taken. Prior study comparison: February 19, 2018, bilateral MG 3d screening mammo w/cad. May 09, 2016, bilateral MG 3d screening mammo w/cad. There are scattered fibroglandular densities. No significant changes when compared with prior studies. ASSESSMENT: Negative, BI-RAD 1 RECOMMENDATION: Routine screening mammogram of both breasts in 1 year.
== END | disposition home or self-care (01) ==
LOC: RADMAMWWP 12:35
PROVIDERS: ATTEND Family Medicine
DX: Z12.31 Encounter for screening mammogram for malignant neoplasm of breast (principal)
CPT/HCPCS: 77063; 77067

== ENCOUNTER → 2019-05-20 | Outpatient (CLI) | payer MEDICARE ==
--- NOTE | 2019-05-20 12:00 | ECHOF ---
Referral Reason:R53.83 fatigue R55 Syncope MEASUREMENTS -------- HEIGHT: 154.9 cm WEIGHT: 80.7 kg BP: RVIDd: 3.4 cm (< 3.3) IVSd: 1.3 cm (0.6 - 1.1) LVIDd: 3.3 cm (3.9 - 5.3) LVPWd: 1.5 cm (0.6 - 1.1) IVSs: 2.0 cm LVIDs: 1.9 cm LVPWs: 1.3 cm LAESV Index (A-L): 18.64 ml/m Ao Diam: 2.4 cm (2.0 - 3.7) AV Cusp: 1.6 cm (1.5 - 2.6) MV EXCURSION: 13.838 mm (> 18.000) MV EF SLOPE: 76 mm/s (70 - 150) EPSS: 0.5 cm MV E Jose: 0.67 m/s MV DecT: 163 ms MV A Jose: 0.92 m/s MV E/A Ratio: 0.73 RAP: 5.00 mmHg RVSP: 33.09 mmHg FINDINGS -------- Sinus rhythm. This was a technically adequate study. The left ventricular size is normal. There is mild concentric left ventricular hypertrophy. Overa ll left ventricular systolic function is normal with, an EF between 55 - 60 %. The diastolic fillin g pattern is normal for the age of the patient 11.23. The right ventricle is mildly enlarged. Normal LA size by volume 22+/-6 ml/m2. The right atrial size is normal. Interatrial and interventricular septum intact. The aortic valve is trileaflet and appears structurally normal. There is no evidence of aortic regu rgitation. There is no evidence of aortic stenosis. No mitral regurgitation. Mild tricuspid regurgitation present. There is borderline pulmonary artery hypertension. The righ t ventricular systolic pressure, as measured by Doppler, is 33.09mmHg. Trace/mild (physiologic) pulmonic regurgitation. The aortic root size is normal. Normal inferior vena cava with normal inspiratory collapse consistent with estimated right atrial pre ssure of 5 mmHg. There is no pericardial effusion. CONCLUSIONS -------- 1. Sinus rhythm. 2. This was a technically adequate study. 3. The left ventricular size is normal. 4. There is mild concentric left ventricular hypertrophy. 5. Overall left ventricular systolic function is normal with, an EF between 55 - 60 %. 6. The diastolic filling pattern is normal for the age of the patient 11.23 7. The right ventricle is mildly enlarged. 8. Normal LA size by volume 22+/-6 ml/m2. 9. The right atrial size is normal. 10. Interatrial and interventricular septum intact. 11. The aortic valve is trileaflet and appears structurally normal. 12. There is no evidence of aortic regurgitation. 13. There is no evidence of aortic stenosis. 14. No mitral regurgitation. 15. Mild tricuspid regurgitation present. 16. There is borderline pulmonary artery hypertension. 17. The right ventricular systolic pressure, as measured by Doppler, is 33.09mmHg. 18. Trace/mild (physiologic) pulmonic regurgitation. 19. The aortic root size is normal. 20. Normal inferior vena cava with normal inspiratory collapse consistent with estimated right atrial pressure of 5 mmHg. 21. There is no pericardial effusion. PHOTORESIST PRINTER: Leah Estrada RDCS
--- NOTE | 2019-05-20 12:04 | EST ---
EXERCISE STRESS AGE: 63 SEX: Female HT: 5'1" WT: 178 pounds PROTOCOL: Braulio STAGE: III DURATION OF EXERCISE: 7 minutes HEART RATE REST: 72 BLOOD PRESSURE REST: 122/73 MAXIMUM HEART RATE ACHIEVED: 143 MAXIMUM BLOOD PRESSURE: 197/88 85% MPHR: 132 100% MPHR: 155 METS: 8 INDICATIONS: Chest pain. CLINICAL INFORMATION: Baseline EKG shows sinus rhythm, normal axis, normal intervals. Patient exercised on Braulio protocol for a total of 7 minutes achieving 8 METs, 100% of predicted maximal heart rate without chest pain or diagnostic ST-segment depression. MMODL / IJN: [id number] /
== END | disposition home or self-care (01) ==
LOC: RADNMMAIN 08:45
PROVIDERS: ATTEND Family Medicine
DX: I07.1 Rheumatic tricuspid insufficiency (principal); I27.21 Secondary pulmonary arterial hypertension; I37.1 Nonrheumatic pulmonary valve insufficiency; R55 Syncope and collapse; R53.83 Other fatigue
CPT/HCPCS: 93017; 93306

== ENCOUNTER → 2020-02-28 | Outpatient (CLI) | payer MEDICARE | END | disposition home or self-care (01) | LOC: LABWHC1 11:00 | PROVIDERS: ATTEND Family Medicine | DX: Z20.828 Contact with and (suspected) exposure to other viral communicable diseases (principal) | CPT/HCPCS: U0003; C9803 ==

== ENCOUNTER → 2020-09-10 | Outpatient (CLI) | payer MEDICARE ==
--- NOTE | 2020-09-10 12:47 | XR ---
EXAMINATION TYPE: XR cervical spine comp DATE OF EXAM: 09/10/2020 TECHNIQUE: Frontal, lateral, oblique, swimmers, and open mouth view of the cervical spine are obtaine d. HISTORY: Neck pain with spasm M54.2 COMPARISON: 09/07/2011 FINDINGS: Bony demineralization. C7-T1 is visualized. Multiple anterior osteophytes most prominent at C4-5, C5-6. Minimal anterolisthesis of C4 on C5, C5 on C6 and C6 on C7. Degenerative changes of the facets which are in alignment. Prevertebral soft tissues are unremarkable. The dens is intact. Atlant oaxial articulation is intact. There is moderate to severe multilevel left neural foraminal narrowing and [id number] right neural foraminal narrowing. A cervical spine MRI may be helpful for furth er evaluation. Posterior ligamentous calcification. IMPRESSION: 1. No evidence of acute fracture or dislocation of the cervical spine. Multilevel degenerative change s. An MRI may be helpful for further evaluation. These findings appear to have progressed since prior exam from 2011.
== END | disposition home or self-care (01) ==
LOC: RADXRMAIN 11:24
PROVIDERS: ATTEND Family Medicine
DX: M47.812 Spondylosis without myelopathy or radiculopathy, cervical region (principal)
CPT/HCPCS: 72050

== ENCOUNTER → 2020-10-15 | Outpatient (CLI) | payer MEDICARE ==
--- NOTE | 2020-10-15 18:01 | MR ---
MRI CERVICAL SPINE: CLINICAL HISTORY: Headache for one month, stiff neck and pain. TECHNIQUE: Multiplanar, multisequence imaging of the cervical spine is performed without IV contrast. COMPARISON: Cervical spine x-ray September 10, 2020. FINDINGS: Sagittal images of the cervical spine show the craniocervical junction to appear within nor mal limits. The cervical and upper thoracic spinal cord is normal in course, caliber, and signal. V ertebral alignment is stable and satisfactory. The vertebral body and intravertebral disk heights ar e within normal limits. . Moderate multilevel anterior spurring. There is hemangioma involving the C 5 vertebra sagittal image 8. Axial images show C2-C3 level to appear within normal limits. Axial images at C3-C4 level show uncovertebral facet degenerative changes bilaterally causing mild to moderate left-sided neural foraminal narrowing. Axial images at C4-C5 levels show uncovertebral facet degenerative changes bilaterally causing mild l eft and mild to moderate right-sided neural foraminal narrowing. Axial images at C5-C6 level show uncovertebral facet degenerative changes bilaterally. There is tiny central disc protrusion. There is mild effacement of the anterior thecal sac and mild right along wit h [id number] left-sided neural foraminal narrowing. Axial images at C6-C7 level show slightly more prominent broad-based posterior disc protrusion mildly facing anterior thecal sac, patent bilateral neural foramina. Axial images at C7-T1 level appear within normal limits. IMPRESSION: Multilevel degenerative changes in the cervical spine as detailed above.
--- NOTE | 2020-10-19 14:13 | MM ---
Reason for exam: screening (asymptomatic). Last mammogram was performed 1 year and 7 months ago. History: Patient is postmenopausal. Family history of breast cancer in mother at age 57 and breast cancer in sister at age 60. Physical Findings: A clinical breast exam by your physician is recommended on an annual basis and results should be correlated with mammographic findings. MG 3D Screening Mammo W/Cad Bilateral CC and MLO view(s) were taken. Prior study comparison: March 15, 2019, bilateral MG 3d screening mammo w/cad. February 19, 2018, bilateral MG 3d screening mammo w/cad. There are scattered fibroglandular densities. No significant changes when compared with prior studies. ASSESSMENT: Negative, BI-RAD 1 RECOMMENDATION: Routine screening mammogram of both breasts in 1 year.
== END | disposition home or self-care (01) ==
LOC: RADMRIMAIN 15:11
PROVIDERS: ATTEND Family Medicine
DX: Z12.31 Encounter for screening mammogram for malignant neoplasm of breast (principal); M50.30 Other cervical disc degeneration, unspecified cervical region
CPT/HCPCS: 72141; 77063; 77067

== ENCOUNTER → 2020-12-24 | Outpatient (CLI) | payer MEDICARE ==
[2020-12-24 08:55] LABS: African American GFR (CKD) >90 (>60 ml/min/1.73 sqM); Blood Urea Nitrogen 16 mg/dL (7-17); Non-African American GFR(CKD) >90 (>60 ml/min/1.73 sqM)
--- NOTE | 2020-12-24 10:46 | CT ---
EXAMINATION TYPE: CT angio head neck DATE OF EXAM: 12/24/2020 9:38 AM COMPARISON: None HISTORY: Headaches of unusual duration of more than 2 weeks not responding to medical therapy CT DLP: 360.3 mGycm Automated exposure control for dose reduction was used. TECHNIQUE: Performed with IV Contrast, patient injected with 65 mL of Isovue 370. 3D reconstructed images performed by the technologist on a separate computer are presented. FINDINGS: Limited CT sections are obtained to the lung apices which appear clear. There is a three-vessel arch. Vertebral arteries appear codominant. Common carotid arteries bifurcate normally into internal and external carotid arteries. Internal carotid arteries and vertebral arteri es are patent to the skull base. There is atheromatous calcification at the left carotid bifurcation. No significant flow-limiting stenosis is evident. There is made of tortuosity of the right internal carotid artery with some redundancy below the skull base. [place]: Vertebral basilar system appears normal. Posterior cerebral vasculature is unremark able. Internal carotid arteries bifurcate normally into A1 and M1 segments. A2 segments are normal. T he anterior communicating artery is patent. Posterior communicating arteries are not identified. NASCET criteria was utilized for evaluation during this exam. IMPRESSION: 1. NO SIGNIFICANT FLOW-LIMITING STENOSIS BILATERAL CAROTID VESSELS. 2. NORMAL [place]
== END | disposition home or self-care (01) ==
LOC: RADCTMAIN 07:50
PROVIDERS: ATTEND Orthopaedic Surgery
DX: R51.9 Headache, unspecified (principal)
CPT/HCPCS: 82565; 84520; 70496; 70498; 36415; Q9967

== ENCOUNTER → 2021-03-17 | Outpatient (CLI) | payer MEDICARE ==
--- NOTE | 2021-03-17 14:57 | MR ---
EXAMINATION TYPE: MR sacroiliac joints wo con DATE OF EXAM: 03/17/2021 COMPARISON: Old CT 12/27/2010 HISTORY: 65-year-old female M45.9, Ankylosing Spondylitis TECHNIQUE: Multiplanar, multisequence images of the bilateral sacroiliac joints were obtained without IV contrast. FINDINGS: Mild degenerative disc disease visualized lower lumbar spine with hypertrophic facet arthropathy. The re is a left lateral disc osteophyte complex at L5-S1 which mildly impinges and displaces the extrafo raminal and intraforaminal exiting left L5 nerve root. Very heterogeneous marrow signal suggesting red marrow hyperplasia. Areas of bony ankylosis across the bilateral SI joints. Some areas of subarticular irregularity sugge sted at the superior aspect of the right SI joint but without any marrow edema or discrete erosions. Sigmoid diverticulosis. No abnormal fluid collection the pelvis. IMPRESSION: 1. Areas of bony ankylosis across the bilateral SI joints compatible with chronic sacroiliitis and/or ankylosing spondylitis. 2. No active subarticular erosions or bone marrow edema at either SI joint. 3. Heterogeneous marrow signal compatible with extensive red marrow hyperplasia. Findings can be seen with anemia, obesity, smoking, or chronic disease. Clinically correlate. 4. Incidental left-sided intraforaminal and lateral disc osteophyte complex at L5-S1 may impinge the exiting left L5 nerve root. Correlate for any radicular symptoms. 5. Sigmoid diverticulosis.
== END | disposition home or self-care (01) ==
LOC: RADMRIMAIN 11:42
PROVIDERS: ATTEND Internal Medicine Rheumatology
DX: M43.28 Fusion of spine, sacral and sacrococcygeal region (principal); M25.78 Osteophyte, vertebrae; K57.30 Diverticulosis of large intestine without perforation or abscess without bleeding
CPT/HCPCS: 72195

== ENCOUNTER → 2021-08-10 | Outpatient (CLI) | payer MEDICARE ==
--- NOTE | 2021-08-10 10:46 | US ---
EXAMINATION TYPE: US abdomen complete DATE OF EXAM: 08/10/2021 COMPARISON: NONE CLINICAL HISTORY: 65-year-old female R16.1 Splenomegaly. GB removed. Abnormal blood work. No pain TECHNIQUE: Multiple sonographic images of the abdomen are obtained. FINDINGS: EXAM MEASUREMENTS: Liver Length: 17.7 CBD: 0.4m Spleen: 11.5 Right Kidney: 10.3 x 4.6 x 4.4 Left Kidney: 11.6 x 4.1 x 4.9 [employer] [place]lower notes:Limited due to overlying bowel gas Pancreas: Very limited due to bowel gas. Only small portions of the perihepatic body are seen. Liver: Appears echogenic and coarse. There is sound beam attenuation. The secondary limits assessmen t for focal lesions. Gallbladder: Surgically absent Evidence for sonographic Meza's sign: neg CBD: wnl Spleen: wnl Right Kidney: No hydronephrosis or masses seen Left Kidney: lateral mid echogenic focus = 0.6 cm Upper IVC: wnl- limited visualization Abd Aorta: Mid portion obscured by overlying bowel gas. No AAA visualized at time of exam IMPRESSION: 1. Exam limitations due to bowel gas. 2. Borderline hepatomegaly (17.7 cm) with at least moderate hepatic steatosis. Correlate with LFTs, l ipid profile, and patient risk factors. 3. Status post cholecystectomy. No biliary ductal dilatation. 4. Possible 6 mm nonobstructive left renal calculus. 5. Spleen measures normal size at 11.5 cm.
== END | disposition home or self-care (01) ==
LOC: RADUSWWP 08:30
PROVIDERS: ATTEND Internal Medicine Hematology & Oncology
DX: K76.0 Fatty (change of) liver, not elsewhere classified (principal); Z90.49 Acquired absence of other specified parts of digestive tract
CPT/HCPCS: 76700

== ENCOUNTER → 2021-10-27 | Outpatient (CLI) | payer MEDICARE ==
--- NOTE | 2021-10-28 07:42 | MM ---
Reason for Exam: Screening (asymptomatic). Last screening mammogram was performed 12 month(s) ago. Patient History: Menarche at age 10. First Full-Term at age 26. Left ovary removed at age 51. Right ovary removed at age 51. Hysterectomy at age 51. Postmenopausal. Sister had breast cancer, age 60. Mother had breast cancer, age 57. Risk Values: Joanna 5 year model risk: 5.9%. NCI Lifetime model risk: 18.0%. Prior Study Comparison: 05/09/2016 Bilateral Screening Mammogram, [facility]. 02/19/2018 Bilateral Screening Mammogram, [facility]. 03/15/2019 Bilateral Screening Mammogram, [facility]. 10/15/2020 Bilateral Screening Mammogram, [facility]. Tissue Density: There are scattered fibroglandular densities. Findings: Analyzed By CAD. There is no suspicious group of microcalcifications or new suspicious mass in either breast. Overall Assessment: Negative, BI-RAD 1 Management: Screening Mammogram of both breasts in 1 year. A clinical breast exam by your physician is recommended on an annual basis and results should be correlated with mammographic findings. Electronically signed and approved by: Simon Doty M.D. Radiologis
== END | disposition home or self-care (01) ==
LOC: RADMAMWWP 07:02
PROVIDERS: ATTEND Family Medicine
DX: Z12.31 Encounter for screening mammogram for malignant neoplasm of breast (principal); Z78.0 Asymptomatic menopausal state; Z80.3 Family history of malignant neoplasm of breast
CPT/HCPCS: 77063; 77067

== ENCOUNTER → 2022-04-05 | Outpatient (CLI) | payer MEDICARE ==
[2022-04-05 14:46] LABS: Basophils # (A) 0.08 X 10*3/uL (0.00-0.10); Basophils % (A) 0.8 %; Eosinophils # (A) 0.16 X 10*3/uL (0.04-0.35); Eosinophils % (A) 1.5 %; HCT 48.4 % (37.2-46.3); HGB 15.8 g/dL (12.0-15.0); Immature Grans, Automated 0.6 %; Lymphocytes # (A) 2.88 X 10*3/uL (0.90-5.00); Lymphocytes % (A) 27.4 %; MCH 31.1 pg (27.0-32.0); MCHC 32.6 g/dL (32.0-37.0); MCV 95.3 fL (80.0-97.0); Mean Platelet Volume 10.5 fL (9.5-12.2); Monocytes # (A) 0.68 X 10*3/uL (0.20-1.00); Monocytes % (A) 6.5 %; NRBC Per 100 WBC 0 /100 WBCS (0.0-0.0); Neutrophils # (A) 6.64 X 10*3/uL (1.80-7.70); Neutrophils % (A) 63.2 %; Platelet Count 390 X 10*3/uL (140-440); RBC 5.08 X 10*6/uL (4.10-5.20); RDW 13.4 % (11.5-14.5)
== END | disposition home or self-care (01) ==
LOC: LABWHC1 10:02
PROVIDERS: ATTEND Orthopaedic Surgery Hand Surgery
DX: Z01.818 Encounter for other preprocedural examination (principal); M65.331 Trigger finger, right middle finger; M65.311 Trigger thumb, right thumb
CPT/HCPCS: 36415; 85025; 93005

== ENCOUNTER → 2022-04-06 | Outpatient (CLI) | payer MEDICARE ==
[2022-04-06 19:33] LABS: Anion Gap 10.1 mmol/L (10.00-18.00); Carbon Dioxide 28.9 mmol/L (20.0-27.5); Potassium 4.4 mmol/L (3.5-5.5)
== END | disposition home or self-care (01) ==
LOC: LABPAT 13:37
PROVIDERS: ATTEND Orthopaedic Surgery Hand Surgery
DX: Z01.812 Encounter for preprocedural laboratory examination (principal); M65.331 Trigger finger, right middle finger; M65.311 Trigger thumb, right thumb
CPT/HCPCS: 80051

== ENCOUNTER 2022-04-13 10:37 | Day surgery (SDC) | payer MEDICARE ==
[2022-04-05 11:52] VITALS: BMI 33.2
--- NOTE | 2022-04-12 19:26 | P.HPOR ---
History of Present Illness H&P Date: 04/12/22 Chief Complaint: Right thumb and middle finger trigger finger Subjective: This is a 66 year old female that presents today for follow up evaluation regarding her right middle finger and right thumb pain, locking and catching. She denies any new injury or inciting event. She notes the fingers get stuck in the morning and she often has to correct them to make them straight. She states her steroid injection to the [facility] improved her symptoms but they have returned. Physical Examination: RUE: AIN/PIN/Radial/Ulnar/Median motor intact. Radial/Ulnar/Median SILT. 2+/4 Radial/Ulnar pulses palpated. TTP over right thumb and middle finger A1 amaris with locking and catching present. Impression: 1.) Right middle finger trigger finger 2.) Right thumb trigger finger Plan: Diagnosis and treatment options were discussed with the patient.She would like to pursue surgery for her trigger fingers since her relief from the injection was temporary. Risks and benefits of surgery including bleeding, infection, damage to surrounding tissue, need for further surgery, residual numbness were discussed and the patient wished to go forward with surgery in the form of a right middle finger and thumb A1 amaris release. The patient was agreeable with this plan of action. -Roberto Carbone DO Orthopedic Hand/Upper Extremity Surgeon Past Medical History Past Medical History: GERD/Reflux, Hyperlipidemia, Hypertension, Musculoskeletal Disorder, Osteoarthritis (OA), Sleep Apnea/CPAP/BIPAP, Thyroid Disorder Additional Past Medical History / Comment(s): Neck stiff due to Ankylosing Spondylitis. No CPAP use. History of Any Multi-Drug Resistant Organisms: None Reported Past Surgical History: Cholecystectomy, Hysterectomy, Joint Replacement, Orthopedic Surgery Additional Past Surgical History / Comment(s): Partial thyroidectomy X2, knee arthroscopy, bilateral knee repalcements, colonoscopy. Past Anesthesia/Blood Transfusion Reactions: Postoperative Nausea & Vomiting (PONV) Additional Past Anesthesia/Blood Transfusion Reaction / Comment(s): Patient wants to be sure Anesthesia knows of Ankylosing Spondylitis. Past Psychological History: No Psychological Hx Reported Smoking Status: Never smoker Past Alcohol Use History: None Reported Past Drug Use History: None Reported - Past Family History Mother Family Medical History: Cancer Additional Family Medical History / Comment(s): Breast cancer. Sister(s) Family Medical History: Cancer, Coronary Artery Disease (CAD) Additional Family Medical History / Comment(s): Breast cancer. Father Family Medical History: Pulmonary Embolus Son(s) Family Medical History: No Reported History Daughter(s) Family Medical History: No Reported History Medications and Allergies Home Medications Medication Instructions Recorded Confirmed Type Ergocalciferol (Vitamin D2) 50,000 unit PO SA 11/21/16 04/05/22 History [Vitamin D2] Levothyroxine Sodium [Synthroid] 125 mcg PO QAM 11/21/16 04/05/22 History Loratadine [Claritin] 10 mg PO DAILY 11/21/16 04/05/22 History Multivit with Calcium,Iron,Min 1 tab PO DAILY 11/21/16 04/05/22 History [Women's Multivitamin] Calcium Citrate/Vitamin D3 2 each PO BID 04/05/22 04/05/22 History [Calcium Cit 315-Vit D3 6.25 Mcg (250 Iu)] Cranberry Fruit Concentrate [Azo 500 mg PO DAILY 04/05/22 04/05/22 History Cranberry] Folic Acid 1 mg PO HS 04/05/22 04/05/22 History Garlic 1,000 mg PO DAILY 04/05/22 04/05/22 History Krill/[place]-3/Dha/Epa/Lipids 1 each PO DAILY 04/05/22 04/05/22 History [Krill Oil 350 mg Softgel] L.acidoph,Paracasei, B.lactis 1 each PO DAILY 04/05/22 04/05/22 History [Probiotic] Lisinopril-Hctz 20-12.5 mg 1 tab PO QAM 04/05/22 04/05/22 History [Zestoretic 20-12.5] Magnesium 400 mg PO DAILY 04/05/22 04/05/22 History Turmeric Root Extract [Turmeric 500 mg PO DAILY 04/05/22 04/05/22 History Curcumin] Vitamin B Complex/Vitamin C 1 tab PO DAILY 04/05/22 04/05/22 History metHOTREXate sodium [Methotrexate] 7 tab PO WE 04/05/22 04/05/22 History tiZANidine [Zanaflex] 2 mg PO DAILY 04/05/22 04/05/22 History Allergies Allergy/AdvReac Type Severity Reaction Status Date / Time amoxicillin Allergy Rash/Hives Verified 04/05/22 11:11 cefuroxime [From Ceftin] Allergy Unknown Verified 04/05/22 11:11 ciprofloxacin [From Cipro] Allergy Unknown Verified 04/05/22 11:11 sulfamethoxazole Allergy Unknown Verified 04/05/22 11:11 [From Septra] tioconazole Allergy Unknown Verified 04/05/22 11:11 [From Monistat 1 (tioconazole)] trimethoprim [From Septra] Allergy Unknown Verified 04/05/22 11:11 hydromorphone [From Dilaudid] AdvReac Nausea & Verified 04/05/22 11:11 Vomiting Physical Examination Osteopathic Statement: *. No significant issues noted on an osteopathic structural exam other than those noted in the History and Physical/Consult.
[~2022-04-13 10:37] MED LIST changes: -ACETAMINOPHEN TAB 500 MG TAB PO ONE; -CLINDAMYCIN 900 MG in DEXTROSE 5% IN WATER 50 ML IVPB ONE; -DEXAMETHASONE SOD PHOSPHATE 10 MG/ML 1 ML VIAL IV ONE; -LACTATED RINGERS 1,000 ML IV SCH; -MELOXICAM 7.5 MG TAB PO ONE; -MIDAZOLAM 2 MG/2 ML VIAL IV PRN; -ONDANSETRON ODT 4 MG TAB PO ONE; +Pre Op ABX Message 1 EACH MISC MISCELLANE ONE; -TRANEXAMIC ACID 1,000 MG in SODIUM CHLORIDE 0.9% 50 ML IVPB ONE; -fentaNYL (PF) 50 MCG/ML 2 ML AMP IV PRN
[2022-04-13] MEDS ORDERED: MIDAZOLAM 2 MG/2 ML VIAL IV PRN (11:16)
[2022-04-13] MEDS ORDERED: DEXAMETHASONE SOD PHOSPHATE 4 MG/ML 1 ML VIAL IV ONE (11:16)
[2022-04-13] MEDS ORDERED: fentaNYL (PF) 50 MCG/ML 2 ML AMP IV PRN (11:16)
[2022-04-13] MEDS ORDERED: LACTATED RINGERS 1,000 ML IV SCH (11:16)
[2022-04-13] MEDS ORDERED: ONDANSETRON 4 MG/2 ML VIAL IVP ONE (11:16)
[2022-04-13] MEDS ORDERED: KETAMINE 10 MG/ML 20 ML VIAL ONE (11:51)
[2022-04-13] MEDS ORDERED: MIDAZOLAM 2 MG/2 ML VIAL ONE (11:51)
[2022-04-13] MEDS ORDERED: PROPOFOL 10 MG/ML 20 ML VIAL IV ONE (11:51)
[2022-04-13] MEDS ORDERED: LIDOCAINE 2% INJ 20 MG/ML (2 ML VIAL) ONE (11:51)
[2022-04-13] MEDS ORDERED: SUCCINYLCHOLINE CHLORIDE 200 MG/10 ML VIAL IV ONE (11:51)
[2022-04-13] MEDS ORDERED: GLYCOPYRROLATE 0.2 MG/ML 2 ML VIAL ONE (11:51)
[2022-04-13] MEDS ORDERED: fentaNYL (PF) 50 MCG/ML 2 ML AMP ONE (11:51)
[2022-04-13] MEDS ORDERED: LIDOCAINE 1% INJ 10MG/ML (10 ML MDV) SQ ONE (11:55)
[2022-04-13] MEDS ORDERED: BUPIVACAINE (PF) 0.5% 30 ML VIAL SQ ONE (11:55)
--- NOTE | 2022-04-13 12:37 | P.OP ---
Date of Procedure: 04/13/22 Preoperative Diagnosis: 1.) Right middle finger trigger finger 2.) Right thumb trigger finger Postoperative Diagnosis: 1.) Right middle finger trigger finger 2.) Right thumb trigger finger Procedure(s) Performed: 1.) Right middle finger A1 amaris release 2.) Right thumb A1 amaris release Anesthesia: MAC Surgeon: Roberto Carbone Estimated Blood Loss (ml): 0 Pathology: none sent Condition: stable Disposition: PACU Description of Procedure: This is a 66 year old female who presents today for a right middle finger and right thumb trigger finger A1 amaris release after having failed conservative treatment. Risks and benefits of surgery were discussed with the patient including bleeding, damage to surrounding tissue, infection, need for further surgery as well as risks of anesthesia including pulmonary embolism and even and the patient wished to proceed with surgical intervention. The patient was seen in the pre-operative area by myself. Consent and H&P were completed and updated. The correct extremity was marked in the pre-operative area by myself and all other questions were answered. Operative Narrative: The patient was brought to the operating room by the department of anesthesia. They remained on the portable stretcher and a rolling hand table was brought to the side of the operative extremity. Pre-operative time out was performed indicating the correct patient, procedure and laterality. All in the room agreed. Pre-operative antibiotics were given prior to skin incision. The patient was then drifted off to sleep by the department of anesthesia. MAC anesthesia was utilized and a 50:50 mixture of 1% Lidocaine and 0.5% bupivacaine was injected into the subcutaneous tissues of the palmar skin, 8ccs total. A nonsterile tourniquet was then applied to the operative extremity and the right upper extremity was then prepped and draped in normal sterile fashion. The operative extremity was the exsanguinated with an esmarch bandage and the tourniquet was inflated to 250mmHg. Oblique incision was made at the base of the right middle finger. Blunt dissection was taken down to the level of the A1 amaris. Ragnell retractors were placed both radially and ulnarly to protect neurovascular bundles. Littler tenotomy scissors were then used to release the A1 amaris from proximal to distal under direct visualization. Proximal fascial attachments were released. The tendon was then taken through range of motion and no locking or catching was appreciated. Transverse incision was made at the base of the thumb overlying the A1 amaris. Blunt dissection was taken down to the level of the A1 amaris. Ragnell retractors were placed both radially and ulnarly to protect neurovascular bundles. Littler tenotomy scissors were then used to release the A1 amaris from proximal to distal under direct visualization. Proximal fascial attachments were released. The tendon was then taken through range of motion and no locking or catching was appreciated. The wound was then closed with interrupted 4-0 nylon sutures in a horizontal mattress fashion. Sterile dressing consisting of adaptic, 4x4s, webril, and an magui wrap was applied. Tourniquet was let down and the hand was immediately well perfused. The patient was then woken by the department of anesthesia and transferred to PACU in stable condition. Roberto Carbone D.O. Orthopedic Hand/Upper Extremity Surgeon
[2022-04-13 12:52] VITALS: TEMP 97.9
[2022-04-13 14:05] VITALS: BP 108/67; PULSE 64; RESP 18
== END 2022-04-13 14:40 | disposition home or self-care (01) ==
LOC: OR 10:37
PROVIDERS: ATTEND Orthopaedic Surgery Hand Surgery
DX: M65.311 Trigger thumb, right thumb (principal); M65.331 Trigger finger, right middle finger; I10 Essential (primary) hypertension; E78.5 Hyperlipidemia, unspecified; G47.33 Obstructive sleep apnea (adult) (pediatric); Z99.89 Dependence on other enabling machines and devices; K21.9 Gastro-esophageal reflux disease without esophagitis; E07.9 Disorder of thyroid, unspecified; Z79.890 Hormone replacement therapy; Z96.653 Presence of artificial knee joint, bilateral; Z98.890 Other specified postprocedural states; Z88.0 Allergy status to penicillin; Z88.1 Allergy status to other antibiotic agents; Z88.2 Allergy status to sulfonamides; M45.2 Ankylosing spondylitis of cervical region; Z90.49 Acquired absence of other specified parts of digestive tract; Z80.3 Family history of malignant neoplasm of breast; Z82.49 Family history of ischemic heart disease and other diseases of the circulatory system; Z83.2 Family history of diseases of the blood and blood-forming organs and certain disorders involving the immune mechanism; Z79.899 Other long term (current) drug therapy; Z88.5 Allergy status to narcotic agent
CPT/HCPCS: 26055 ×2; J2250; J0330; J1100; J2405; J3010; J2001 ×2; J2704

== ENCOUNTER → 2022-08-19 | Outpatient (CLI) | payer MEDICARE ==
[2022-08-20 02:37] LABS: BUN/Creat Ratio 25.83 Ratio (12.00-20.00); Blood Urea Nitrogen 15.5 mg/dL (9.0-27.0); Calcium 10.4 mg/dL (8.7-10.3); Carbon Dioxide 28.3 mmol/L (21.6-31.8); Chloride 101 mmol/L (96-109); Glucose 107 mg/dL (70-110); Potassium 4.2 mmol/L (3.5-5.5); Sodium 144 mmol/L (135-145)
[2022-08-20 09:04] LABS: Basophils # (A) 0.07 X 10*3/uL (0.00-0.10); Basophils % (A) 0.8 %; Eosinophils # (A) 0.16 X 10*3/uL (0.04-0.35); Eosinophils % (A) 1.9 %; HCT 46.7 % (37.2-46.3); HGB 15.9 d/dL (12.0-15.0); Lymphocytes % (A) 29.1 %; MCH 32.9 pg (27.0-32.0); MCV 96.5 FL (80.0-97.0); Mean Platelet Volume 11.5 FL (9.5-12.2); Monocytes % (A) 6.1 %; NRBC Per 100 WBC 0 X 10*3/uL (0.00-0.01); Neutrophils # (A) 5.07 X 10*3/uL (1.80-7.70); Neutrophils % (A) 61.6 %; Platelet Count 296 X 10*3/uL (140-440); RBC 4.84 X 10*6/uL (4.10-5.20); RDW 13.7 % (11.5-14.5); WBC 8.24 X 10*3/uL (4.50-10.00)
== END | disposition home or self-care (01) ==
LOC: LABPAT 12:41
PROVIDERS: ATTEND Orthopaedic Surgery
DX: Z01.818 Encounter for other preprocedural examination (principal); S82.031A Displaced transverse fracture of right patella, initial encounter for closed fracture; R94.31 Abnormal electrocardiogram [ECG] [EKG]
CPT/HCPCS: 80048; 85025; 93005

== ENCOUNTER 2022-08-25 08:21 | Observation (INO) | payer MEDICARE ==
[2022-08-22 14:13] VITALS: BMI 32.8
--- NOTE | 2022-08-24 14:00 | HP ---
HISTORY AND PHYSICAL DATE OF SCHEDULED SURGERY: 08/25/2022. HISTORY OF PRESENT ILLNESS: Debora Aparicio is a 66-year-old patient who was seen with a right knee displaced periprosthetic patella fracture and I recommended open reduction, internal fixation of right displaced periprosthetic patellar fracture. Reviewed the procedure, risks, complications, benefits, recovery, she was agreeable. Consent was obtained. PAST MEDICAL HISTORY: Hypertension, hypothyroidism, migraine headaches. PAST SURGICAL HISTORY: Cholecystectomy, hysterectomy, bilateral total knee arthroplasty, and thyroidectomy. DAILY MEDICATIONS: 1. Prilosec. 2. Levothyroxine. 3. Lisinopril. 4. Aleve. ALLERGIES: Amoxicillin, Septra. SOCIAL HISTORY: She denies tobacco use. PHYSICAL EXAMINATION: Evaluation of right knee shows well-healed anterior incision. Diffuse tenderness about the patella. Extension is -5 degrees. Flexion is at 90 degrees. Ligaments stable. Hip rotation without pain. Distal neurovascular exam intact. RADIOGRAPHS: Right knee radiographs revealed a displaced periprosthetic patella fracture with a stable appearing total knee arthroplasty. IMPRESSION: 1. Right knee displaced periprosthetic patella fracture. 2. Hypothyroidism. 3. Hypertension. 4. History of right total knee arthroplasty. PLAN: Open reduction, internal fixation right patella fracture. MMODL / IJN: [id number] /
[~2022-08-25 08:21] MED LIST changes: +ONDANSETRON 4 MG/2 ML VIAL IVP ONE; -Pre Op ABX Message 1 EACH MISC MISCELLANE ONE
[2022-08-25] MEDS ORDERED: DEXAMETHASONE SOD PHOSPHATE 4 MG/ML 1 ML VIAL IVP ONE (09:10)
[2022-08-25] MEDS ORDERED: MIDAZOLAM 2 MG/2 ML VIAL IVP ONE (09:19)
[2022-08-25] MEDS: LACTATED RINGERS 1,000 ML IV SCH ×4 (09:37→16:18)
[2022-08-25] MEDS ORDERED: fentaNYL (PF) 50 MCG/ML 2 ML AMP ONE (10:05)
[2022-08-25] MEDS ORDERED: MIDAZOLAM 2 MG/2 ML VIAL ONE (10:05)
[2022-08-25] MEDS ORDERED: ceFAZolin 1,000 MG in SODIUM CHLORIDE 0.9% 1,000 ML IRRIGATION ONE (10:05)
[2022-08-25] MEDS ORDERED: ROPIVACAINE 5 MG/ML 30 ML VIAL ONE (10:05)
[2022-08-25] MEDS ORDERED: PROPOFOL 10 MG/ML 20 ML VIAL IV ONE (10:05)
[2022-08-25] MEDS ORDERED: DEXAMETHASONE SOD PHOSPHATE 4 MG/ML 1 ML VIAL ONE (10:05)
[2022-08-25] MEDS ORDERED: SUCCINYLCHOLINE CHLORIDE 200 MG/10 ML VIAL IV ONE (10:05)
[2022-08-25] MEDS ORDERED: ROCURONIUM 10 MG/ML (5 ML VIAL) IV ONE (10:05)
[2022-08-25] MEDS ORDERED: GLYCOPYRROLATE 0.2 MG/ML 2 ML VIAL ONE (10:05)
[2022-08-25] MEDS ORDERED: LIDOCAINE 2% INJ 20 MG/ML (2 ML VIAL) ONE (10:05)
[2022-08-25] MEDS ORDERED: NEOSTIGMINE 1 MG/ML 10 ML VIAL ONE (10:05)
--- NOTE | 2022-08-25 11:01 | P.OP ---
Date of Procedure: 08/25/22 Preoperative Diagnosis: Displaced right knee periprosthetic patella fracture Postoperative Diagnosis: Same Procedure(s) Performed: Open reduction and internal fixation right knee periprosthetic patella fracture Implants: 20.65 K wires and one 18-gauge cerclage wire Anesthesia: IAN Surgeon: Henri Martínez Addiction Treatment Counselor #1: Vic Elias Estimated Blood Loss (ml): 5 Pathology: none sent Condition: stable Disposition: PACU Indications for Procedure: 66-year-old patient who was seen with a displaced right knee periprosthetic patella fracture. I recommended open reduction and internal fixation. Patient was agreeable. Consent was obtained. Operative Findings: Description of procedure Description of Procedure: Patient was taken to the operative suite she underwent a general anesthetic by the department of anesthesia. A well-padded tourniquet placed proximal right thigh. Right lower extremity prepped and draped in the normal sterile orthopedic fashion. Patient had received preoperative IV antibiotics. The extremity was elevated and the tourniquet was insufflated to 300. I now made an incision along the previous cicatrix sharply through skin. We dissected down to the patella. The fascia was dissected along the midportion of the patella felt the displaced fracture. I noted a displaced fracture measuring about 1 cm of displacement. The polyethylene component appeared well seated along the inferior aspect of the patella. I irrigated the wound out copiously. I used dry sure to remove some scar tissue and get to some bleeding bone. With the assistance of Vic VAZQUEZ I used a reduction forceps clamp to reduce the fracture in anatomic position. I now passed 2-0.65 K wires crossing the fracture site in a longitudinal fashion perpendicular to the fracture. I now used my 18-gauge cerclage were in a standard te-moak lavage compression technique compressing the fracture nicely. The K wires were bent clipped and buried in the soft tissue. The cerclage wire was clipped and buried in the soft tissues well. I took the knee to about 90 of flexion and noted good stability the fracture. There was irrigated again copiously. The subcu soft tissues repaired with 2-0 Vicryl. The skin was repaired with a running subcutaneous suture followed by skin glue. Sterile dressings were applied. Tourniquet was released and immediate capillary refill noted extremity. Sterile Vlad bandage were applied. The leg was placed into a long knee immobilizer. Patient was awakened and transferred to recovery stable condition having tolerated procedure well. Vic VAZQUEZ assisted in all aspects of this procedure.
[2022-08-25] MEDS ORDERED: ONDANSETRON 4 MG/2 ML VIAL IVP PRN (11:06)
[2022-08-25] MEDS ORDERED: HYDROmorphone 0.5 MG/0.5 ML SYRINGE IVP PRN ×3 (11:06)
[2022-08-25] MEDS ORDERED: HYDROcodone/APAP 5-325MG 1 EACH TAB PO PRN (11:06)
[2022-08-25] MEDS ORDERED: NALOXONE 0.4 MG/ML 1 ML VIAL IV PRN (11:06)
[2022-08-25] MEDS ORDERED: LACTATED RINGERS 1,000 ML IV ONE (11:12)
[2022-08-25] MEDS: fentaNYL (PF) 50 MCG/ML 2 ML AMP IV PRN ×2 (11:45→12:03)
--- NOTE | 2022-08-25 12:16 | XR ---
EXAMINATION TYPE: XR knee limited RT DATE OF EXAM: 08/25/2022 CLINICAL HISTORY: Postoperative evaluation Two views of the right knee are submitted. Identified are changes of total knee arthroplasty with femoral and tibial components appearing well seated. Postsurgical soft tissue changes are noted. Alignment is anatomic.
[2022-08-25] MEDS: MEPERIDINE 50 MG/ML SYRINGE IVP ONE ×2 (12:32→13:36)
[2022-08-25] MEDS: HYDROcodone/APAP 5-325MG 1 EACH TAB PO PRN ×2 (15:34→20:35)
--- NOTE | 2022-08-25 20:24 | P.ANPRN ---
Procedure Note - Anesthesia - Nerve Block Performed Right Adductor Canal Single Time Out Performed: Yes Date of Procedure: 08/25/22 Procedure Start Time: Procedure Stop Time: Location of Patient: PreOp Indication: Acute Post-Operative Pain, Requested by Surgeon Sedation Type: Sedate with meaningful contact maintained Preparation: Sterile Prep Position: Supine Needle Types: Pajunk Needle Gauge: 21 Ultrasound used to visualize needle placement: Yes Ultrasound used to observe medication spread: Yes Blood Aspirated: No Pain Paresthesia on Injection Noted: No Resistance on Injection: Normal Image Stored and Saved: Yes Events: Uneventful and Well Tolerated (Ropivacaine 0.5% 20 mL of dexamethasone 4 mg)
[2022-08-25] MEDS: ASPIRIN 325 MG TAB PO SCH (20:35)
[2022-08-26] MEDS: HYDROcodone/APAP 5-325MG 1 EACH TAB PO PRN ×4 (01:26→20:13)
[2022-08-26 06:41] LABS: Basophils % (A) 0 %; Eosinophils % (A) 0 %; HCT 44.2 % (34.0-46.0); HGB 14.5 gm/dL (11.4-16.0); Lymphocytes # (A) 1.6 k/uL (1.0-4.8); Lymphocytes % (A) 10 %; MCH 31.6 pg (25.0-35.0); MCHC 32.8 g/dL (31.0-37.0); MCV 96.4 fL (80.0-100.0); Mean Platelet Volume 8.2; Monocytes # (A) 0.9 k/uL (0-1.0); Monocytes % (A) 6 %; Neutrophils # (A) 12.7 k/uL (1.3-7.7); Neutrophils % (A) 83 %; Platelet Count 385 k/uL (150-450); RBC 4.58 m/uL (3.80-5.40); RDW 13.6 % (11.5-15.5); WBC 15.3 k/uL (3.8-10.6)
[2022-08-26] MEDS: ASPIRIN 325 MG TAB PO SCH (07:42)
--- NOTE | 2022-08-26 10:24 | P.CONS ---
History of Present Illness - Reason for Consult Leukocytosis - History of Present Illness The patient is a 67-year-old female admitted for pedal or fracture, open reduction internal fixation. Patient is still having seen in pain. Patient was bit hypotensive postoperatively patient does take ANDREW inhibitor/diuretic combination for blood pressure at home patient does have leukocytosis. Patient has some urinary retention because of which patient is undergoing bladder scans and straight catheterization at this time. Patient denied any other significant complaints at this time. Patient didn't pass gas. REVIEW OF SYSTEMS: CONSTITUTIONAL: No fever, no malaise, no fatigue. HEENT: No recent visual problems or hearing problems. Denied any sore throat. CARDIOVASCULAR: No chest pain, orthopnea, PND, no palpitations, no syncope. PULMONARY: No shortness of breath, no cough, no hemoptysis. GASTROINTESTINAL: No diarrhea, no nausea, no vomiting, no abdominal pain. NEUROLOGICAL: No headaches, no weakness, no numbness. HEMATOLOGICAL: Denies any bleeding or petechiae. GENITOURINARY: Denies any burning micturition, frequency, or urgency. MUSCULOSKELETAL/RHEUMATOLOGICAL: As mentioned in HPI ENDOCRINE: Denies any polyuria or polydipsia. The rest of the 14-point review of systems is negative. PHYSICAL EXAMINATION: GENERAL: The patient is alert and oriented x3, not in any acute distress. Well developed, well nourished. HEENT: Pupils are round and equally reacting to light. EOMI. No scleral icterus. No conjunctival pallor. Normocephalic, atraumatic. No pharyngeal erythema. No thyromegaly. CARDIOVASCULAR: S1 and S2 present. No murmurs, rubs, or gallops. PULMONARY: Chest is clear to auscultation, no wheezing or crackles. ABDOMEN: Soft, nontender, nondistended, normoactive bowel sounds. No palpable organomegaly. MUSCULOSKELETAL: Deferred to orthopedic surgery EXTREMITIES: No cyanosis, clubbing, or pedal edema. NEUROLOGICAL: Gross neurological examination did not reveal any focal deficits. SKIN: No rashes. Assessment and plan -leukocytosis: Reactive but evidence of infection at this time. No further intervention is necessary -Expected perioperative hypotension hold off on antidepressant medications at this time -Hypertension -Hypothyroidism continue with levothyroxine -Open reduction internal fixation patellar fracture: Pain management and DVT prophylaxis as per primary service -Urinary retention: Seconded to surgery, expected straight catheterization if she continues to have urinary retention patient will need De La Cruz cath Past Medical History Past Medical History: Hypertension, Osteoarthritis (OA), Sleep Apnea/CPAP/BIPAP, Thyroid Disorder Additional Past Medical History / Comment(s): supposed to use CPAP. FX RT KNEE -07/19/22. ANKYLOSING SPONDYLITIS History of Any Multi-Drug Resistant Organisms: None Reported Past Surgical History: Cholecystectomy, Hysterectomy, Orthopedic Surgery Additional Past Surgical History / Comment(s): thyroidectomy,. RT arthroscopy knee. BILAT TKA. RT MIDDLE FINGER AND THUMB TRIGGER RELEASE. COLONOSCOPY Past Anesthesia/Blood Transfusion Reactions: Postoperative Nausea & Vomiting (PONV) Additional Past Anesthesia/Blood Transfusion Reaction / Comm: Patient wants to be sure Anesthesia knows of Ankylosing Spondylitis. ALSO PT HAD SOME BRUISING OF HER NECK AFTER HAND SX Past Psychological History: No Psychological Hx Reported Smoking Status: Never smoker Past Alcohol Use History: None Reported Past Drug Use History: None Reported - Past Family History Mother Family Medical History: Cancer Additional Family Medical History / Comment(s): Breast cancer. Sister(s) Family Medical History: Cancer, Coronary Artery Disease (CAD) Additional Family Medical History / Comment(s): Breast cancer. Father Family Medical History: Pulmonary Embolus Son(s) Family Medical History: No Reported History Daughter(s) Family Medical History: No Reported History Medications and Allergies Home Medications Medication Instructions Recorded Confirmed Type Ergocalciferol (Vitamin D2) 50,000 unit PO SA 11/21/16 08/22/22 History [Vitamin D2] Levothyroxine Sodium [Synthroid] 125 mcg PO QAM 11/21/16 08/22/22 History Loratadine [Claritin] 10 mg PO DAILY 11/21/16 08/22/22 History Multivit with Calcium,Iron,Min 1 tab PO DAILY 11/21/16 08/22/22 History [Women's Multivitamin] Calcium Citrate/Vitamin D3 2 each PO BID 04/05/22 08/22/22 History [Calcium Cit 315-Vit D3 6.25 Mcg (250 Iu)] Cranberry Fruit Concentrate [Azo 500 mg PO DAILY 04/05/22 08/22/22 History Cranberry] Folic Acid 1 mg PO HS 04/05/22 08/22/22 History Garlic 1,000 mg PO DAILY 04/05/22 08/22/22 History Krill/Holcomb-3/Dha/Epa/Lipids 1 each PO DAILY 04/05/22 08/22/22 History [Krill Oil 350 mg Softgel] L.acidoph,Paracasei, B.lactis 1 each PO DAILY 04/05/22 08/22/22 History [Probiotic] Lisinopril-Hctz 20-12.5 mg 1 tab PO QAM 04/05/22 08/22/22 History [Zestoretic 20-12.5] Magnesium 400 mg PO DAILY 04/05/22 08/22/22 History Turmeric Root Extract [Turmeric 500 mg PO DAILY 04/05/22 08/22/22 History Curcumin] Vitamin B Complex/Vitamin C 1 tab PO DAILY 04/05/22 08/22/22 History metHOTREXate sodium [Methotrexate] 7 tab PO WE 04/05/22 08/22/22 History tiZANidine [Zanaflex] 2 mg PO DAILY 04/05/22 08/22/22 History Acetaminophen [Tylenol] 650 mg PO Q6HR PRN 08/22/22 08/22/22 History Naproxen Sodium [Aleve] 220 mg PO BID PRN 08/22/22 08/22/22 History Allergies Allergy/AdvReac Type Severity Reaction Status Date / Time amoxicillin Allergy Rash/Hives Verified 08/25/22 08:55 cefuroxime [From Ceftin] Allergy Rash/Hives Verified 08/25/22 08:55 ciprofloxacin [From Cipro] Allergy Rash/Hives Verified 08/25/22 08:55 sulfamethoxazole Allergy Rash/Hives Verified 08/25/22 08:55 [From Septra] tioconazole Allergy Rash/Hives Verified 08/25/22 08:55 [From Monistat 1 (tioconazole)] trimethoprim [From Septra] Allergy Rash/Hives Verified 08/25/22 08:55 hydromorphone [From Dilaudid] AdvReac Nausea & Verified 08/25/22 08:55 Vomiting Physical Exam Vitals: Vital Signs Temp Pulse Resp BP Pulse Ox 08/26/22 06:51 97.8 F 51 L 16 103/61 97 08/26/22 01:47 97.7 F 57 L 110/66 97 08/25/22 19:47 98.1 F 63 18 128/74 97 08/25/22 15:46 100 08/25/22 15:34 97.9 F 69 20 146/73 99 08/25/22 14:48 54 L 16 133/62 08/25/22 14:15 54 L 16 131/63 08/25/22 14:00 52 L 16 131/63 08/25/22 13:45 51 L 16 131/55 08/25/22 13:30 52 L 16 152/66 08/25/22 13:15 55 L 16 139/65 08/25/22 13:00 49 L 16 128/61 08/25/22 12:45 48 L 16 126/61 08/25/22 12:30 49 L 18 135/63 08/25/22 12:15 49 L 18 136/63 99 08/25/22 12:00 42 L 18 134/67 100 08/25/22 11:45 45 L 18 150/66 98 08/25/22 11:30 47 L 18 144/62 98 08/25/22 11:24 97.5 F L 50 L 18 146/67 96 Intake and Output 08/25/22 08/26/22 08/26/22 22:59 06:59 14:59 Output Total 250 650 550 Balance -250 -650 -550 Output: Urine 250 650 550 Straight 550 Other: Voiding Method External Catheter External Catheter Weight 76.6 kg Results CBC & Chem 7: 08/26/22 05:19 Labs: Abnormal Lab Results - Last 24 Hours (Table) 08/26/22 Range/Units 05:19 WBC 15.3 H (3.8-10.6) k/uL Neutrophils # 12.7 H (1.3-7.7) k/uL
[2022-08-26] MEDS: LEVOTHYROXINE 125 MCG TAB PO SCH (10:56)
--- NOTE | 2022-08-26 12:45 | P.PN ---
Subjective Progress Note Date: 08/26/22 Principal diagnosis: Displaced right knee periprosthetic patella fracture Patient was seen at bedside this morning sitting up in chair a bit nauseated. Knee immobilizer was in place with Vlad bandage present over knee. Patient says she did have some breakfast and pain medications morning. When she sat up in the chair for a little bit she began to feel nauseous. Patient denies having any episodes of vomiting. Patient is hoping to stay one more night for pain control before going home tomorrow. Patient says physical therapy has not been in this area, but is looking forward to working with them later this morning. Patient says she has not had bony yet, however, patient says she's been passing gas. Patient denies chest pain, fever, shortness breath, change in vision, loss of bowel/bladder control. Objective - Vital Signs Vital signs: Vital Signs Temp 97.8 F 08/26/22 06:51 Pulse 51 L 08/26/22 06:51 Resp 16 08/26/22 06:51 BP 103/61 08/26/22 06:51 Pulse Ox 97 08/26/22 06:51 FiO2 Intake & Output 08/25/22 08/26/22 08/26/22 18:59 06:59 18:59 Intake Total 2050 Output Total 255 650 550 Balance 1796 -650 -550 Weight 76.6 kg Intake: IV 2050 Output: Urine 250 650 550 Straight 550 Estimated Blood Loss 5 Other: Voiding Method Bedpan External Catheter External Catheter - Exam Right knee: Incision is clean, dry, and intact. The silver foam dressing is in good condit ion. Vlad bandage was taken down. Knee immobilizer is in place and holding well at this time. There is minimal soft tissue swelling and ecchymosis surrounding the medial and lateral aspects of the incision. Calf is soft, no tenderness with palpation. Plantar flexion, dorsiflexion, EHL, FHL are intact. Sensory exam to light touch throughout the extremity is intact, dorsal pedis pulses 2+. - Labs CBC & Chem 7: 08/26/22 05:19 Labs: Abnormal Lab Results - Last 24 Hours (Table) 08/26/22 Range/Units 05:19 WBC 15.3 H (3.8-10.6) k/uL Neutrophils # 12.7 H (1.3-7.7) k/uL Assessment and Plan Assessment: 1. Displaced right knee periprosthetic patella fracture Postoperative day 1 status post Open reduction and internal fixation right knee periprosthetic patella fracture Plan: Displaced right knee periprosthetic patella fracture - surgery performed yesterday, , 08/25/2022 Open reduction and internal fixation right knee periprosthetic patella fracture. Patient stable at bedside this morning sitting up in chair in moderate amount of pain. Patient also does have some nausea. We'll keep patient 1 more night for observation plan for discharge home tomorrow. Maintain in knee immobilizer in full extension at all times. Pain medication as needed. PT/OT daily. We'll continue follow patient during her stay. 2. Appreciate medical management 3. Pain management - norco; dilaudid only if necessary 4. DVT prophylaxis - aspirin 325 mg daily 5. GI prophylaxis - senna 6. PT/OT - nonweightbearing right lower extremity. Maintained right lower extremity and knee immobilizer. Encourage ankle dorsi/plantar flexion as well as full knee extension/quadriceps activation 7. Encourage incentive spirometer 8. Discharge planning - discharge home tomorrow, 08/27/2022. Time with Patient: Less than 30
[2022-08-26] MEDS: MULTIVITAMINS, THERA 1 EACH TAB PO SCH (12:50)
[2022-08-26] MEDS: LACTATED RINGERS 1,000 ML IV SCH (13:01)
[2022-08-27] MEDS: LACTATED RINGERS 1,000 ML IV SCH ×2 (00:07→00:08)
[2022-08-27] MEDS: HYDROcodone/APAP 5-325MG 1 EACH TAB PO PRN ×3 (02:57→14:18)
[2022-08-27 03:49] LABS: Appearance,Urine Clear (Clear); Bilirubin,Urine Negative (Negative); Blood,Urine Trace (Negative); Color,Urine Light Yellow; Glucose,Urine (UA) Negative (Negative); Hyaline Casts,Urine 1 /lpf (0-2); Ketones,Urine Negative (Negative); Leukocyte Esterase,Urine Negative (Negative); Mucus,Urine Rare /hpf; Nitrite,Urine Negative (Negative); PH, Urine 5.5 (5.0-8.0); Protein,Urine Negative (Negative); RBC,Urine 2 /hpf (0-5); Specific Gravity,Urine 1.011 (1.001-1.035); Urobilinogen,Urine <2.0 mg/dL (<2.0); WBC,Urine 1 /hpf (0-5)
[2022-08-27] MEDS: LEVOTHYROXINE 125 MCG TAB PO SCH (06:15)
[2022-08-27 07:30] VITALS: RESP 16
--- NOTE | 2022-08-27 08:30 | P.PN ---
Subjective Progress Note Date: 08/27/22 Principal diagnosis: Displaced right knee periprosthetic patella fracture Patient was seen at bedside this morning lying in the bed with knee immobilizer on right lower extremity. Patient says she is doing a little bit better this morning and she was yesterday. Patient says she is still having a burning pain directly over her right knee. Patient says she is lying poorly going home later today. Patient says she has urinated daily, however, she still feels like she does not completely empty her bladder when she does urinate. Patient says she did work with physical therapy yesterday.Patient denies chest pain, fever, shortness breath, change in vision, loss of bowel/bladder control. Objective - Vital Signs Vital signs: Vital Signs Temp 98.3 F 08/27/22 06:58 Pulse 71 08/27/22 06:58 Resp 16 08/27/22 06:58 BP 112/70 08/27/22 06:58 Pulse Ox 97 08/27/22 07:41 FiO2 Intake & Output 08/26/22 08/27/22 08/27/22 18:59 06:59 18:59 Output Total 750 700 Balance -750 -700 Output: Urine 750 700 Straight 550 400 Other: Voiding Method External Catheter Bedside Commode # Voids 2 - Exam Right knee: Incision is clean, dry, and intact. The silver foam dressing is in good condition. Knee immobilizer is in place and holding well at this time. There is minimal soft tissue swelling and ecchymosis surrounding the medial and lateral aspects of the incision. Calf is soft, no tenderness with palpation. Plantar flexion, dorsiflexion, EHL, FHL are intact. Sensory exam to light touch throughout the extremity is intact, dorsal pedis pulses 2+. - Labs CBC & Chem 7: 08/26/22 05:19 Labs: Abnormal Lab Results - Last 24 Hours (Table) 08/27/22 Range/Units 01:00 Urine Blood Trace H (Negative) Urine Mucus Rare H (None) /hpf Assessment and Plan Assessment: 1. Displaced right knee periprosthetic patella fracture Postoperative day 2 status post Open reduction and internal fixation right knee periprosthetic patella fracture Plan: 1. Displaced right knee periprosthetic patella fracture - surgery performed , 08/25/2022 Open reduction and internal fixation right knee periprosthetic patella fracture. Patient stable at bedside this morning lying in bed in moderate amount of pain. Maintain in knee immobilizer in full extension at all times. Pain medication as needed. PT/OT daily. discharge home today, 08/27/2022. 2. Appreciate medical management 3. Pain management - norco 4. DVT prophylaxis - aspirin 325 mg daily 5. GI prophylaxis - senna 6. PT/OT - nonweightbearing right lower extremity. Maintained right lower extremity and knee immobilizer. Encourage ankle dorsi/plantar flexion as well as full knee extension/quadriceps activation 7. Encourage incentive spirometer 8. Discharge planning - discharge home today, 08/27/2022. Time with Patient: Less than 30
--- NOTE | 2022-08-27 08:38 | P.DS ---
Providers Date of admission: 08/26/22 13:40 Expected date of discharge: 08/27/22 Attending physician: Henri Martínez Consults: 08/25/22 11:06 Consult Physician Routine Consulting Provider: Sheila Ruth Consult Reason/Comments: Medical management Do you want consulting provider notified?: Yes Primary care physician: Iker [facility] Course: Date of admission: 08/25/2022 Date of discharge: 08/27/2029 Admission diagnosis: Displaced right knee periprosthetic patella fracture Discharge diagnosis: Same Attending physician: Dr. Martínez Surgical procedures: Open reduction and internal fixation right knee periprosthetic patella fracture Brief history: Patient is a 67-year-old female with a history of displaced right knee periprosthetic patella fracture. At this point patient has failed conservative treatment measures and has opted to proceed with a elective open reduction and internal fixation right knee periprosthetic patellar fracture. Hospital course: Details of patient's surgery can be found in operative report. Patient tolerated the procedure well and was subsequently transported to orthopedic floor. Patient's orthopeidc and medical care was provided daily. Patient had daily laboratory tests performed for evaluation of overall blood counts. Patient had daily physical therapy to include strengthening range of motion as well as education with walker ambulation. Patient was treated with aspirin for their postoperative DVT prophylaxis during their inpatient stay. Patient was noted to have a relatively uneventful postoperative course. Patient reported satisfactory pain control with oral pain medications by postoperative day 2. Patient showed satisfactory progress with physical therapy. Patient moved steadily through the program and had no difficulty meeting the goals by postoperative day 2. Given patient's otherwise satisfactory course and having met physical therapy goals, plan is to discharge patient home on postoperative day 2. Discharge condition/disposition: Patient will be discharged home in stable condition. Discharge medications: Instructions are given on resumption of patient's normal daily medications per primary care recommendation, in addition patient will be prescribed Sublimity 5 mg/325 mg; Lyrica 150 mg twice a day; aspirin 325 mg daily; senna. Orthopedic Discharge Instructions: 1. Wound care and infection precautions, keep incision dry and covered while showering, no lotions, creams, moisturizers. No soaking, pools, hot tubs. Do not scrub over incision. 2. Remain nonweightbearing right lower extremity 3. Ice and elevate when necessary. Do not exceed 20 minutes per hour with ice pack. 4. Maintain right lower extremity and knee immobilizer on and full extension at all times. May take off to shower only 5. Pain meds and anticoagulants per prescription. 6. Pain medication has potential to cause constipation. Increase oral fluid and fiber intake. Contact primary care provider if you have not had a bowel movement within 48 hours after discharge. 7. No anti-inflammatory medication until discussed at first post operative visit, this including Motrin, Aleve, Mobic, Diclofenac. 8. Follow up in office at 2 weeks postop with Rick Russell PA-C / Vic Elias PA-C 9. Follow up with your primary care doctor 7-10 days after discharge. 10. Contact [facility] with any questions, . Assessment: Displaced right knee periprosthetic patella fracture Procedures: Open reduction and internal fixation right knee periprosthetic patella fracture Patient Condition at Discharge: Good Plan - Discharge Summary Discharge Rx Participant: Yes New Discharge Prescriptions: New HYDROcodone/APAP 5-325MG [Sublimity 5-325] 1 - 2 tab PO Q6HR PRN #36 tab PRN Reason: Pain Aspirin 325 mg PO DAILY #28 tab Pregabalin [Lyrica] 150 mg PO BID #21 cap Sennosides/Docusate Sodium [Senna Plus 8.6-50 mg Softgel] 1 each PO DAILY #20 capsule No Action Loratadine [Claritin] 10 mg PO DAILY Levothyroxine Sodium [Synthroid] 125 mcg PO QAM Multivit with Calcium,Iron,Min [Women's Multivitamin] 1 tab PO DAILY Ergocalciferol (Vitamin D2) [Vitamin D2] 50,000 unit PO SA Cranberry Fruit Concentrate [Azo Cranberry] 500 mg PO DAILY Vitamin B Complex/Vitamin C 1 tab PO DAILY tiZANidine [Zanaflex] 2 mg PO DAILY Lisinopril-Hctz 20-12.5 mg [Zestoretic 20-12.5] 1 tab PO QAM Magnesium 400 mg PO DAILY Naproxen Sodium [Aleve] 220 mg PO BID PRN PRN Reason: Pain Acetaminophen [Tylenol] 650 mg PO Q6HR PRN PRN Reason: Pain Krill/[place]-3/Dha/Epa/Lipids [Krill Oil 350 mg Softgel] 1 each PO DAILY Garlic 1,000 mg PO DAILY Calcium Citrate/Vitamin D3 [Calcium Cit 315-Vit D3 6.25 Mcg (250 Iu)] 2 each PO BID Turmeric Root Extract [Turmeric Curcumin] 500 mg PO DAILY L.acidpawel,Paracasei, B.lactis [Probiotic] 1 each PO DAILY Folic Acid 1 mg PO HS metHOTREXate sodium [Methotrexate] 7 tab PO WE Discharge Medication List Ergocalciferol (Vitamin D2) [Vitamin D2] 50,000 unit PO SA 11/21/16 [History] Levothyroxine Sodium [Synthroid] 125 mcg PO QAM 11/21/16 [History] Loratadine [Claritin] 10 mg PO DAILY 11/21/16 [History] Multivit with Calcium,Iron,Min [Women's Multivitamin] 1 tab PO DAILY 11/21/16 [History] Calcium Citrate/Vitamin D3 [Calcium Cit 315-Vit D3 6.25 Mcg (250 Iu)] 2 each PO BID 04/05/22 [History] Cranberry Fruit Concentrate [Azo Cranberry] 500 mg PO DAILY 04/05/22 [History] Folic Acid 1 mg PO HS 04/05/22 [History] Garlic 1,000 mg PO DAILY 04/05/22 [History] Krill/[place]-3/Dha/Epa/Lipids [Krill Oil 350 mg Softgel] 1 each PO DAILY 04/05/22 [History] L.acidoph,Paracasei, B.lactis [Probiotic] 1 each PO DAILY 04/05/22 [History] Lisinopril-Hctz 20-12.5 mg [Zestoretic 20-12.5] 1 tab PO QAM 04/05/22 [History] Magnesium 400 mg PO DAILY 04/05/22 [History] Turmeric Root Extract [Turmeric Curcumin] 500 mg PO DAILY 04/05/22 [History] Vitamin B Complex/Vitamin C 1 tab PO DAILY 04/05/22 [History] metHOTREXate sodium [Methotrexate] 7 tab PO WE 04/05/22 [History] tiZANidine [Zanaflex] 2 mg PO DAILY 04/05/22 [History] Acetaminophen [Tylenol] 650 mg PO Q6HR PRN 08/22/22 [History] Naproxen Sodium [Aleve] 220 mg PO BID PRN 08/22/22 [History] Aspirin 325 mg PO DAILY #28 tab 08/27/22 [Rx] HYDROcodone/APAP 5-325MG [Sublimity 5-325] 1 - 2 tab PO Q6HR PRN #36 tab 08/27/22 [Rx] Pregabalin [Lyrica] 150 mg PO BID #21 cap 08/27/22 [Rx] Sennosides/Docusate Sodium [Senna Plus 8.6-50 mg Softgel] 1 each PO DAILY #20 capsule 08/27/22 [Rx] Follow up Appointment(s)/Referral(s): Parrish Russell PAC [PHYSICIAN FLANGER] - 2 Weeks Patient Instructions/Handouts: Patellar Fracture (DC), Patellar Fracture Repair (DC) Activity/Diet/Wound Care/Special Instructions: Orthopedic Discharge Instructions: 1. Wound care and infection precautions, keep incision dry and covered while showering, no lotions, creams, moisturizers. No soaking, pools, hot tubs. Do not scrub over incision. 2. Remain nonweightbearing right lower extremity 3. Ice and elevate when necessary. Do not exceed 20 minutes per hour with ice pack. 4. Maintain right lower extremity and knee immobilizer on and full extension at all times. May take off to shower only 5. Pain meds and anticoagulants per prescription. 6. Pain medication has potential to cause constipation. Increase oral fluid and fiber intake. Contact primary care provider if you have not had a bowel movement within 48 hours after discharge. 7. No anti-inflammatory medication until discussed at first post operative visit, this including Motrin, Aleve, Mobic, Diclofenac. 8. Follow up in office at 2 weeks postop with Rick Russell PA-C / Vic Elias PA-C 9. Follow up with your primary care doctor 7-10 days after discharge. 10. Contact [facility] with any questions, . Keep silver foam dressing clean, dry, intact. While showering, cover silver foam dressing with Saran wrap. Silver foam dressing may be removed in 5 days, , 09/01/2022. It is okay to shower directly over incision once silver foam dressing is removed. Discharge Disposition: HOME SELF-CARE
[2022-08-27] MEDS ORDERED: ASPIRIN 325 MG TAB PO SCH (09:00)
[2022-08-27] MEDS ORDERED: LORATADINE 10 MG TAB PO SCH (09:00)
[2022-08-27] MEDS: MULTIVITAMINS, THERA 1 EACH TAB PO SCH (11:36)
--- NOTE | 2022-08-27 11:52 | P.PN ---
Subjective Progress Note Date: 08/27/22 The patient is a 67-year-old female admitted for pedal or fracture, open reduction internal fixation. Patient is still having seen in pain. Patient was bit hypotensive postoperatively patient does take ANDREW inhibitor/diuretic combination for blood pressure at home patient does have leukocytosis. Patient has some urinary retention because of which patient is undergoing bladder scans and straight catheterization at this time. Patient denied any other significant complaints at this time. Patient didn't pass gas. 08/27/2022 Patient is evaluated today sitting up in the bed. Postoperative day#1 right knee arthroplasty. Pain is controlled with oral medications patient has positive pedal and post tib pulses with minimal post surgical swelling. Brace in place. Patient having issues with urinary retention with 320 mls of urine in the bladder. Discussed with orthopedics and patient will have indwelling catheter placed and will discharge with the indwelling catheter in place has been started on flomax and will follow up with urology in the office. Recommend to repeat BMP in 2 to 3 days. Patient will discharge with bowel regimen while on narcotics for pain management. Had white count of 15.3 today which is expected postoperatively. Urinalysis was completed and negative for infection was a miles l UA. No fever. Blood pressure on the lower side of normal 112/70 and recommending to monitor blood pressure at home and to resume blood pressure medications if BP becomes elevated about 130s systolic this is to avoid postoperative hypotension dizziness and prevent falls. Patient cleared medically for DC home. Review of Systems Constitutional: Denied any fatigue denied any fever. Cardio vascular: denied any chest pain, palpitations Gastrointestinal: denied any nausea, vomiting, diarrhea, reports urinary retention and low urine output. Passing gas no BM. Pulmonary: Denied any shortness of breath cough Neurologic denied any new focal deficits All inpatient medications were reviewed and appropriate changes in these medications as dictated in the interval history and assessment and plan. PHYSICAL EXAMINATION: GENERAL: The patient is alert and oriented x3, not in any acute distress. Well developed, well nourished. HEENT: Pupils are round and equally reacting to light. EOMI. No scleral icterus. No conjunctival pallor. Normocephalic, atraumatic. No pharyngeal erythema. No thyromegaly. CARDIOVASCULAR: S1 and S2 present. No murmurs, rubs, or gallops. PULMONARY: Chest is clear to auscultation, no wheezing or crackles. ABDOMEN: Soft, nontender, nondistended, normoactive bowel sounds. No palpable organomegaly. MUSCULOSKELETAL: Deferred to orthopedic surgery EXTREMITIES: No cyanosis, clubbing, or pedal edema. NEUROLOGICAL: Gross neurological examination did not reveal any focal deficits. SKIN: No rashes. Assessment and plan -leukocytosis: Reactive but evidence of infection at this time. No further intervention is necessary this is likely postoperative. -Blood pressure is low normal postsurgical and recommending holding off blood pressure medication on discharge and monitor BP at home to resume if BP becomes elevated about 130s systolic. -Hypertension -Hypothyroidism continue with levothyroxine -Open reduction internal fixation patellar fracture: Pain management and DVT prophylaxis as per primary service. Follow up with orthopedics on discharge. -Urinary retention: Seconded to surgery, expected straight catheterization x2 and indwelling catheter has been placed patient is started on flomax and to follow up with urology on discharge, urinalysis is completed. Full Code Cleared medically for discharge with mentioned recommendations to follow up with PCP and urology on discharge. Discharge with indwelling catheter has been started on flomax and patient will repeat labs BMP and CBC in 2 to 3 days. Increase activity level and continue with bowel regimen while on narcotics for pain management. Hold lisinopril and monitor blood pressure. Thank you for this consultation. The impression and plan of care has been dictated by Zeinab Lim, Nurse Practitioner as directed. Dr. Edouard MD I have performed a history and physical examination and medical decision making of this patient, discussed the same with the dictator, and agree with the dictators assessment and plan as written, documented as a scribe. Based on total visit time, I have performed more than 50% of this visit. Objective - Vital Signs Vital signs: Vital Signs Temp 98.3 F 08/27/22 06:58 Pulse 71 08/27/22 06:58 Resp 16 08/27/22 06:58 BP 112/70 08/27/22 06:58 Pulse Ox 97 08/27/22 07:41 FiO2 Intake & Output 08/26/22 08/27/22 08/27/22 18:59 06:59 18:59 Output Total 750 700 Balance -750 -700 Output: Urine 750 700 Straight 550 400 Other: Voiding Method External Catheter Bedside Commode # Voids 2 - Labs CBC & Chem 7: 08/26/22 05:19 Labs: Abnormal Lab Results - Last 24 Hours (Table) 08/27/22 Range/Units 01:00 Urine Blood Trace H (Negative) Urine Mucus Rare H (None) /hpf Assessment and Plan Time with Patient: Less than 30
[2022-08-27 12:52] LABS: African American GFR (CKD) >90 (>60 ml/min/1.73 sqM); Anion Gap 6 mmol/L; Blood Urea Nitrogen 19 mg/dL (7-17); Calcium 8.3 mg/dL (8.4-10.2); Carbon Dioxide 31 mmol/L (22-30); Chloride 99 mmol/L (98-107); Glucose 125 mg/dL (74-99); Non-African American GFR(CKD) >90 (>60 ml/min/1.73 sqM); Sodium 136 mmol/L (137-145)
[2022-08-27 13:52] VITALS: BP 130/64; PULSE 63; TEMP 98.1
[2022-08-31] MEDS ORDERED: metHOTREXate sodium 2.5 MG TAB PO SCH (09:00)
== END 2022-08-27 14:33 | disposition home or self-care (01) ==
LOC: OR 08:21 → 4SSUR 11:27 → OR 08-26 13:40
PROVIDERS: ADMIT Orthopaedic Surgery; ATTEND Orthopaedic Surgery
DX: S82.031A Displaced transverse fracture of right patella, initial encounter for closed fracture (principal); I10 Essential (primary) hypertension; G43.909 Migraine, unspecified, not intractable, without status migrainosus; Z79.890 Hormone replacement therapy; Z79.899 Other long term (current) drug therapy; Z79.1 Long term (current) use of non-steroidal anti-inflammatories (NSAID); Z90.49 Acquired absence of other specified parts of digestive tract; Z90.710 Acquired absence of both cervix and uterus; Z95.5 Presence of coronary angioplasty implant and graft; E89.0 Postprocedural hypothyroidism; Z88.0 Allergy status to penicillin; Z88.8 Allergy status to other drugs, medicaments and biological substances
CPT/HCPCS: 94760 ×2; 97116; 97163; 64447; 80048; 85025; 81001; 73560; 27524; G0378 ×2; J2250; J0330; J1100; J2710; J2175; J0690 ×3; J2405 ×2; J3010; J2795; J2704; J2001

== ENCOUNTER → 2023-01-27 | Outpatient (CLI) | payer MEDICARE ==
[~2023-01-27] MED LIST changes: -ONDANSETRON 4 MG/2 ML VIAL IVP ONE; +SODIUM CHLORIDE 0.9% 500 ML 500 ML in EMPTY BAG 1 BAG IV PRN; +ZOLEDRONIC ACID 5 MG in SODIUM CHLORIDE 0.9% 100 ML IV NR
[2023-01-27 10:55] VITALS: BP 145/79; PULSE 67; RESP 16; TEMP 97.7
== END ==
LOC: PROCWHC3 10:11
PROVIDERS: ATTEND Internal Medicine
DX: M81.0 Age-related osteoporosis without current pathological fracture (principal)
CPT/HCPCS: 96365; J3489

== ENCOUNTER → 2023-02-03 | Outpatient (CLI) | payer MEDICARE ==
--- NOTE | 2023-02-06 08:00 | MM ---
Reason for Exam: Screening (asymptomatic). Last mammogram was performed 1 year(s) and 3 month(s) ago. Patient History: Menarche at age 10. First Full-Term at age 26. Left ovary removed at age 51. Right ovary removed at age 51. Hysterectomy at age 51. Postmenopausal. Sister had breast cancer, age 60. Mother had breast cancer, age 57. Risk Values: Joanna 5 year model risk: 5.9%. NCI Lifetime model risk: 17.3%. Prior Study Comparison: 03/15/2019 Bilateral Screening Mammogram, [facility]. 10/15/2020 Bilateral Screening Mammogram, [facility]. 10/27/2021 Bilateral MG 3D screening mammo w/cad, [facility]. Tissue Density: The breast tissue is almost entirely fat. Findings: Analyzed By CAD. There is no suspicious group of microcalcifications or new suspicious mass. Overall Assessment: Negative, BI-RAD 1 Management: Screening Mammogram of both breasts in [address] [facility] will attempt to contact patient to return for supplemental views and ultrasound if indicated. Patient should continue monthly self-breast exams. A clinical breast exam by your physician is recommended on an annual basis. This exam should not preclude additional follow-up of suspicious palpable abnormalities. Note on Joanna scores and lifetime risk: 1. A Joanna score greater than 3% is considered moderate risk. If this is the case, consider specialist referral to assess eligibility for a risk reducing agent. 2. If overall lifetime risk for the development of breast cancer is 20% or higher, the patient may qualify for future screening with alternating mammogram and breast MRI. Electronically signed and approved by: Chapo Soler DO
== END | disposition home or self-care (01) ==
LOC: RADMAMWWP 13:48
PROVIDERS: ATTEND Family Medicine
DX: Z12.31 Encounter for screening mammogram for malignant neoplasm of breast (principal); Z80.3 Family history of malignant neoplasm of breast; Z78.0 Asymptomatic menopausal state
CPT/HCPCS: 77063; 77067

== ENCOUNTER → 2023-02-03 | Outpatient (CLI) | payer MEDICARE ==
[2023-02-04 00:23] LABS: Anion Gap 13.7 mmol/L (4.00-12.00); Carbon Dioxide 26.3 mmol/L (21.6-31.8); Potassium 4.2 mmol/L (3.5-5.5)
[2023-02-04 00:43] LABS: Basophils # (A) 0.08 X 10*3/uL (0.00-0.10); Basophils % (A) 0.8 %; Eosinophils # (A) 0.23 X 10*3/uL (0.04-0.35); Eosinophils % (A) 2.2 %; HCT 47.7 % (37.2-46.3); HGB 15.5 g/dL (12.0-15.0); Lymphocytes # (A) 2.69 X 10*3/uL (0.90-5.00); Lymphocytes % (A) 25.5 %; MCH 31.3 pg (27.0-32.0); MCHC 32.5 g/dL (32.0-37.0); MCV 96.2 FL (80.0-97.0); Mean Platelet Volume 10.2 FL (9.5-12.2); Monocytes # (A) 0.54 X 10*3/uL (0.20-1.00); Monocytes % (A) 5.1 %; NRBC Per 100 WBC 0 X 10*3/uL (0.00-0.01); Neutrophils # (A) 6.97 X 10*3/uL (1.80-7.70); Neutrophils % (A) 65.9 %; Platelet Count 437 X 10*3/uL (140-440); RBC 4.96 X 10*6/uL (4.10-5.20); RDW 13.7 % (11.5-14.5); WBC 10.56 X 10*3/uL (4.50-10.00)
== END | disposition home or self-care (01) ==
LOC: LABPAT 14:08
PROVIDERS: ATTEND Orthopaedic Surgery
DX: Z01.812 Encounter for preprocedural laboratory examination (principal)
CPT/HCPCS: 80051; 85025

== ENCOUNTER 2023-02-16 14:48 | Day surgery (SDC) | payer MEDICARE ==
--- NOTE | 2023-02-15 14:23 | HP ---
HISTORY AND PHYSICAL DATE OF SURGERY: 02/16/2023. HISTORY OF PRESENT ILLNESS: Debora Aparicio is a 67-year-old patient, seen with irritating hardware about the right knee with a history of previous ORIF of patellar fracture. We discussed removal of her irritating hardware, right knee. She was agreeable. Consent was obtained. PAST MEDICAL HISTORY: Hypertension and hypothyroidism. PAST SURGICAL HISTORY: Cholecystectomy, hysterectomy, right total knee arthroplasty, ORIF of right knee patellar fracture, and thyroidectomy. DAILY MEDICATIONS: 1. Levothyroxine. 2. Lisinopril. 3. Methotrexate. 4. Aleve. 5. Vitamins. ALLERGIES: 1. Amoxicillin. 2. Septra. 3. Monistat. SOCIAL HISTORY: She denies tobacco use. PHYSICAL EVALUATION OF THE RIGHT KNEE: She has a well-healed midline incision. Range of motion is -1/2 to 100 degrees. Ligaments are stable. Her distal neurovascular exam is intact. IMAGING STUDIES: Radiographs of the right knee revealed a healed patellar fracture with a stable- appearing total knee arthroplasty. IMPRESSION: 1. Irritating hardware, right knee. 2. History of open reduction and internal fixation of right knee patellar fracture. 3. Right total knee arthroplasty. 4. Hypertension. 5. Hyperlipidemia. PLAN: Removal of irritating hardware, right knee. MMODL / IJN: [id number] /
[2023-02-16] MEDS ORDERED: HYDROmorphone 0.5 MG/0.5 ML SYRINGE IVP PRN (15:05)
[2023-02-16] MEDS ORDERED: DEXAMETHASONE SOD PHOSPHATE 4 MG/ML 1 ML VIAL IV ONE (15:05)
[2023-02-16] MEDS ORDERED: ONDANSETRON 4 MG/2 ML VIAL IVP ONE (15:05)
[2023-02-16] MEDS ORDERED: LACTATED RINGERS 1,000 ML IV SCH (15:05)
[2023-02-16] MEDS ORDERED: MIDAZOLAM 2 MG/2 ML VIAL IVP ONE (16:42)
[2023-02-16] MEDS ORDERED: LIDOCAINE 1% INJ 10MG/ML (20 ML MDV) ONE (16:51)
[2023-02-16] MEDS ORDERED: PROPOFOL 10 MG/ML 20 ML VIAL IV ONE (16:51)
[2023-02-16] MEDS ORDERED: SUCCINYLCHOLINE CHLORIDE 200 MG/10 ML VIAL IV ONE (16:51)
[2023-02-16] MEDS ORDERED: ROCURONIUM 10 MG/ML (5 ML VIAL) IV ONE (16:51)
[2023-02-16] MEDS ORDERED: GLYCOPYRROLATE 0.2 MG/ML 2 ML VIAL ONE (16:51)
[2023-02-16] MEDS ORDERED: fentaNYL (PF) 50 MCG/ML 2 ML AMP ONE (16:51)
[2023-02-16] MEDS ORDERED: NEOSTIGMINE 1 MG/ML 10 ML VIAL ONE (16:51)
[2023-02-16] MEDS ORDERED: ceFAZolin 1,000 MG in SODIUM CHLORIDE 0.9% 1,000 ML IRRIGATION ONE (17:14)
[2023-02-16] MEDS ORDERED: BUPIVACAINE (PF) 0.25% 30 ML VIAL SQ ONE ×2 (17:25→17:32)
--- NOTE | 2023-02-16 17:34 | P.OP ---
Date of Procedure: 02/16/23 Preoperative Diagnosis: Irritating hardware right knee Postoperative Diagnosis: Same Procedure(s) Performed: Removal irritating hardware right knee Anesthesia: IAN, local Surgeon: Henri Martínez Submarine Operator #1: Vic Elias Estimated Blood Loss (ml): 13 Pathology: none sent Condition: stable Disposition: PACU Indications for Procedure: 67-year-old patient seen with irritating hardware right knee. History previous patella fracture with ORIF utilizing K wires and cerclage wire. I discussed removal of her irritating hardware. Patient was agreeable. Consent was obtained. Operative Findings: See description of procedure Description of Procedure: Patient was taken to the operative suite. She underwent a general anesthetic by the department of anesthesia. She received preoperative IV antibiotics. A well-padded tourniquet was placed along the proximal right thigh. The right lower extremity was prepped and draped in the normal sterile orthopedic fashion. We elevated the extremity and stated the tourniquet to 250. I made an incision through the previous cicatrix sharply through skin. I dissected down to the superior surface of patella. I was able to identify all the hardware medially. I now clipped the K wires and pulled them out without difficulty. I dissect out the cerclage wire was able to remove that without difficulty. I took the knee through full range of motion noted good stability of the patella. We irrigated the wound out copiously with mechanical irrigation. The subcu soft tissues repaired utilizing Vicryl suture.. The skin was repaired utilizing a subcuticu lar running suture followed by skin glue. I infiltrated the subcutaneous area with 10 mL of quarter percent plain Marcaine for postoperative pain management. Sterile dressings were applied. The tourniquet was released and we noted immediate capillary refill the lower extremity. The patient was now awakened, transferred to a bed and recovery in stable condition. Vic VAZQUEZ assisted with the procedure.
[2023-02-16 18:04] VITALS: TEMP 98
[2023-02-16] MEDS ORDERED: fentaNYL (PF) 50 MCG/ML 2 ML AMP IVP ONE ×2 (18:10→18:17)
[2023-02-16] MEDS ORDERED: HYDROcodone/APAP 5-325MG 1 EACH TAB ONE (18:53)
[2023-02-16 19:30] VITALS: RESP 16
[2023-02-16 19:51] VITALS: BP 122/63; PULSE 55
== END 2023-02-16 20:25 | disposition home or self-care (01) ==
LOC: OR 14:48
PROVIDERS: ATTEND Orthopaedic Surgery
DX: T84.84XA Pain due to internal orthopedic prosthetic devices, implants and grafts, initial encounter (principal); I10 Essential (primary) hypertension; E03.9 Hypothyroidism, unspecified; E78.5 Hyperlipidemia, unspecified; Z90.710 Acquired absence of both cervix and uterus; Z96.651 Presence of right artificial knee joint; Z90.49 Acquired absence of other specified parts of digestive tract; Z98.890 Other specified postprocedural states; Z79.890 Hormone replacement therapy; Z79.899 Other long term (current) drug therapy; Z88.0 Allergy status to penicillin; Z88.2 Allergy status to sulfonamides; Z88.6 Allergy status to analgesic agent
CPT/HCPCS: 20680; J2250; J0330; J2710; J0690 ×2; J2405; J2001; J3010; J2704; J0665

== ENCOUNTER → 2023-05-30 | Outpatient (CLI) | payer MEDICARE ==
[2023-05-30 18:12] LABS: Basophils # (A) 0.09 X 10*3/uL (0.00-0.10); Basophils % (A) 0.8 %; Eosinophils % (A) 1.9 %; HCT 47.1 % (37.2-46.3); HGB 15.6 g/dL (12.0-15.0); Lymphocytes # (A) 2.58 X 10*3/uL (0.90-5.00); Lymphocytes % (A) 24.2 %; MCHC 33.1 g/dL (32.0-37.0); MCV 96.5 FL (80.0-97.0); Monocytes # (A) 0.59 X 10*3/uL (0.20-1.00); Monocytes % (A) 5.5 %; NRBC Per 100 WBC 0 X 10*3/uL (0.00-0.01); Neutrophils # (A) 7.17 X 10*3/uL (1.80-7.70); Neutrophils % (A) 67.2 %; Platelet Count 380 X 10*3/uL (140-440); RBC 4.88 X 10*6/uL (4.10-5.20); RDW 13.7 % (11.5-14.5); WBC 10.67 X 10*3/uL (4.50-10.00)
[2023-05-30 18:21] LABS: Erythrocyte Sedimentation Rate 28 mm/Hr (0-30)
[2023-05-30 18:37] LABS: ALT 63 U/L (8-44); AST 46 U/L (13-35); Blood Urea Nitrogen 16.4 mg/dL (9.0-27.0)
== END | disposition home or self-care (01) ==
LOC: LABWHC1 14:31
PROVIDERS: ATTEND Internal Medicine Rheumatology
DX: M45.2 Ankylosing spondylitis of cervical region (principal)
CPT/HCPCS: 36415; 82565; 84450; 84460; 84520; 85025; 85652; 86140

== ENCOUNTER → 2024-01-23 | Outpatient (CLI) | payer MEDICARE ==
--- NOTE | 2024-01-23 14:39 | XR ---
EXAMINATION TYPE: XR chest 2V DATE OF EXAM: 01/23/2024 1:32 PM COMPARISON: None. CLINICAL INDICATION: Female, 68 years old with history of Z00.00 [facility] FOR GENERAL ADULT MEDICAL EXA M W/O A, TECHNIQUE: XR chest 2V view(s) obtained. FINDINGS: The heart size is normal. The pulmonary vasculature is normal. The lungs are clear. IMPRESSION: 1. No acute pulmonary process. [facility], , 01/23/2024 2:36 PM
== END | disposition home or self-care (01) ==
LOC: RADXRMAIN 13:22
PROVIDERS: ATTEND Family Medicine
DX: Z00.00 Encounter for general adult medical examination without abnormal findings (principal)
CPT/HCPCS: 71046

== ENCOUNTER → 2024-01-29 | Outpatient (CLI) | payer MEDICARE ==
[~2024-01-29] MED LIST changes: +SODIUM CHLORIDE 0.9% 250 ML in EMPTY BAG 1 BAG IV PRN; -SODIUM CHLORIDE 0.9% 500 ML 500 ML in EMPTY BAG 1 BAG IV PRN; -ZOLEDRONIC ACID 5 MG in SODIUM CHLORIDE 0.9% 100 ML IV NR
[2024-01-29 13:51] VITALS: BP 168/76; PULSE 76; RESP 16; TEMP 98.3
[2024-01-29] MEDS: SODIUM CHLORIDE 0.9% 500 ML 500 ML in EMPTY BAG 1 BAG IV PRN (13:53)
[2024-01-29] MEDS: ZOLEDRONIC ACID 5 MG in SODIUM CHLORIDE 0.9% 100 ML IV NR (14:02)
== END ==
LOC: PROCWHC3 13:23
PROVIDERS: ATTEND Internal Medicine
DX: M81.0 Age-related osteoporosis without current pathological fracture (principal)
CPT/HCPCS: 96365; J3489

== ENCOUNTER → 2024-02-14 | Outpatient (CLI) | payer MEDICARE ==
--- NOTE | 2024-02-15 18:44 | MM ---
Reason for Exam: Screening (asymptomatic). Last mammogram was performed 1 year(s) and 1 month(s) ago. Patient History: Menarche at age 10. First Full-Term at age 26. Left ovary removed at age 51. Right ovary removed at age 51. Hysterectomy at age 51. Postmenopausal. Sister had breast cancer, age 60. Mother had breast cancer, age 57. Risk Values: Joanna 5 year model risk: 6.0%. NCI Lifetime model risk: 16.5%. Prior Study Comparison: 10/15/2020 Bilateral Screening Mammogram, [facility]. 10/27/2021 Bilateral MG 3D screening mammo w/cad, [facility]. 02/03/2023 Bilateral MG 3D screening mammo w/cad, [facility]. Tissue Density: There are scattered areas of fibroglandular density. Findings: Analyzed By CAD. Chronic nodularity lateral subareolar left breast. There is no suspicious group of microcalcifications or new suspicious mass in either breast. Overall Assessment: Benign, BI-RAD 2 Management: Screening Mammogram of both breasts in 1 year. See note below in regards to patient's increased 5 year Joanna score. Patient should continue monthly self-breast exams. A clinical breast exam by your physician is recommended on an annual basis. This exam should not preclude additional follow-up of suspicious palpable abnormalities. Note on Joanna scores and lifetime risk: 1. A Joanna score greater than 3% is considered moderate risk. If this is the case, consider specialist referral to assess eligibility for a risk reducing agent. 2. If overall lifetime risk for the development of breast cancer is 20% or higher, the patient may qualify for future screening with alternating mammogram and breast MRI. [facility], , 02/15/2024 6:41 PM. Electronically signed and approved by: Ladarius Smith M.D. Radiologist
== END | disposition home or self-care (01) ==
LOC: RADMAMWWP 08:45
PROVIDERS: ATTEND Family Medicine
DX: Z12.31 Encounter for screening mammogram for malignant neoplasm of breast (principal); Z80.3 Family history of malignant neoplasm of breast; Z90.722 Acquired absence of ovaries, bilateral; Z78.0 Asymptomatic menopausal state; R92.323 Mammographic fibroglandular density, bilateral breasts
CPT/HCPCS: 77063; 77067

== ENCOUNTER → 2024-05-15 | Outpatient (CLI) | payer MEDICARE ==
[2024-05-15 18:26] LABS: C Reactive Protein 0.8 mg/dL (0.00-0.80)
[2024-05-15 19:05] LABS: Albumin 4.2 g/dL (3.8-4.9); Albumin/Globulin Ratio 1.35 Ratio (1.60-3.17); Bilirubin, Conjugated 0.22 mg/dL (0.20-0.40); Bilirubin,Unconjugated 0.48 mg/dL (0.20-1.00); Globulin 3.1 g/dL (1.6-3.3); Total Bilirubin 0.7 mg/dL (0.3-1.2); Total Protein 7.3 g/dL (6.2-8.2)
[2024-05-15 19:23] LABS: Basophils # (A) 0.07 X 10*3/uL (0.00-0.10); Basophils % (A) 0.8 %; Eosinophils % (A) 1.2 %; HCT 50.2 % (37.2-46.3); HGB 16.7 g/dL (12.0-15.0); Lymphocytes % (A) 27.9 %; MCH 31.6 pg (27.0-32.0); MCHC 33.3 g/dL (32.0-37.0); MCV 94.9 FL (80.0-97.0); Mean Platelet Volume 11.7 FL (9.5-12.2); Monocytes # (A) 0.47 X 10*3/uL (0.20-1.00); Monocytes % (A) 5.7 %; NRBC Per 100 WBC 0 X 10*3/uL (0.00-0.01); Neutrophils # (A) 5.27 X 10*3/uL (1.80-7.70); Platelet Count 283 X 10*3/uL (140-440); RBC 5.29 X 10*6/uL (4.10-5.20); RBC Morphology Normal (Normal); RDW 13.4 % (11.5-14.5); WBC 8.24 X 10*3/uL (4.50-10.00)
[2024-05-15 19:35] LABS: Erythrocyte Sedimentation Rate 20 mm/Hr (0-30)
== END | disposition home or self-care (01) ==
LOC: LABWHC1 12:52
PROVIDERS: ATTEND Internal Medicine Rheumatology
DX: M45.2 Ankylosing spondylitis of cervical region (principal); R79.89 Other specified abnormal findings of blood chemistry
CPT/HCPCS: 36415; 80076; 85025; 85652; 86140

== ENCOUNTER → 2024-05-29 | Outpatient (CLI) | payer MEDICARE ==
--- NOTE | 2024-05-29 09:28 | US ---
EXAMINATION TYPE: US liver DATE OF EXAM: 05/29/2024 COMPARISON: CLINICAL INDICATION: Female, 68 years old with history of R79.89 OTHER SPECIFIED ABNORMAL FINDINGS OF BLOOD; Abnormal labs TECHNIQUE: Grayscale and color Doppler imaging of the right upper quadrant was performed. FINDINGS: EXAM MEASUREMENTS: Liver Length: 17.5 cm CBD: 0.4 cm Right Kidney: 10.7 x 4.7 x 4.5 cm MAINTENANCE GROUNDSKEEPER NOTES:Limited due to patient body habitus and bowel gas Pancreas: Head and tail obscured by overlying bowel gas. Portions seen appears echogenic. Liver: Increased attenuation, decreased visualization of vessels suggestive of fatty infiltrate. Up per limits of normal in size. Limited visualization due to penetration. Echogenic and coarse. Gallbladder: Surgically absent Evidence for sonographic Meza's sign: neg CBD: wnl Right Kidney: No prominent hydronephrosis or masses seen, limited IMPRESSION: Correlate for hepatic steatosis. [facility], , 05/29/2024 9:26 AM
== END | disposition home or self-care (01) ==
LOC: RADUSWWP 08:51
PROVIDERS: ATTEND Internal Medicine Rheumatology
DX: R79.89 Other specified abnormal findings of blood chemistry (principal)
CPT/HCPCS: 76705